=== PATIENT | female | born 1955 | race African-American/Black ===

== ENCOUNTER 2019-01-29 00:24 | Emergency (ER) | payer MEDICARE ==
[~2019-01-29] VITALS: Ht 154.9 cm; Wt 56.8 kg
[2019-01-29] MEDS ORDERED: METF10004 PO (00:49)
[2019-01-29] MEDS ORDERED: GLIP5TAB8 PO (00:49)
[2019-01-29] MEDS ORDERED: CLON0.2T PO (00:49)
[2019-01-29 00:58] LABS: BASO # 0.1 10^3/uL (0.0-0.2); BASO % 0.6 % (0.0-1.0); EOS # 0.3 10^3/uL (0.0-0.50); EOS % 3.1 % (0.0-3.0); HEMATOCRIT 32.5 % (36.0-47.0); HEMOGLOBIN 10.1 g/dl (12.0-15.5); LYMPH % 49.3 % (24.0-44.0); MEAN CORPUSCULAR HEMOGLOBIN 28.8 pg (27.0-33.0); MEAN CORPUSCULAR HGB CONC 31.1 g/dl (32.0-36.5); MEAN CORPUSCULAR VOLUME 92.6 fl (80.0-96.0); MONO # 0.6 10^3/uL (0.0-0.8); NEUTROPHILS # 3.1 10^3/uL (1.8-7.7); NEUTROPHILS % 38.8 % (36.0-66.0); PLATELET COUNT, AUTOMATED 318 10^3/uL (150-450); RED BLOOD COUNT 3.51 10^6/uL (4.00-5.40)
[2019-01-29] MEDS ORDERED: METOPROLOL 5 MG/5 ML VIAL IV STA (01:13)
[2019-01-29 01:35] LABS: BLOOD UREA NITROGEN 34 MG/DL (7-18); CALCIUM LEVEL 9.5 MG/DL (8.8-10.2); CARBON DIOXIDE LEVEL 31 MEQ/L (21-32); CHLORIDE LEVEL 99 MEQ/L (98-107); CPK CREATINE PHOSPHOKINASE 92 U/L (26-192); CREATININE FOR GFR 1.41 MG/DL (0.55-1.30); GLOMERULAR FILTRATION RATE 40.2 (>45); GLUCOSE, FASTING 142 MG/DL (70-100); MB/CK RELATIVE INDEX 2.17 (< OR =4); POTASSIUM SERUM 4.2 MEQ/L (3.5-5.1); SODIUM LEVEL 138 MEQ/L (136-145); TROPONIN I < 0.02 NG/ML (< 0.10)
[2019-01-29] MEDS ORDERED: cloNIDine 0.1 MG TAB PO ONE (01:45)
[2019-01-29 02:07] VITALS: BP 181/94
[2019-01-29] MEDS ORDERED: LOPR1TAB6 PO (03:21)
[2019-01-29 03:46] VITALS: BP 170/91
--- NOTE | 2019-01-29 08:57 | REP ---
Clinical: Acute chest pain . Comparison: None . Findings: The mediastinum and cardiac silhouette are stable and within normal limits for portable technique. The lung chester are clear without acute consolidation, effusion, or pneumothorax. Skeletal structures are intact. Impression: No acute cardiopulmonary process appreciated. Electronically Signed by Calvin Cueva MD 01/29/2019 08:49 A
--- NOTE | 2019-01-29 19:15 | ECGEPIP ---
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
== END 2019-01-29 03:47 | disposition home or self-care (01) ==
LOC: EDBD 00:24 → M ED 00:24
DX: I49.1 Atrial premature depolarization (principal); I10 Essential (primary) hypertension; E11.9 Type 2 diabetes mellitus without complications; Z79.899 Other long term (current) drug therapy; Z79.84 Long term (current) use of oral hypoglycemic drugs

== ENCOUNTER 2020-03-01 14:28 | Inpatient (IN) | payer MEDICARE, MEDICAID ==
[~2020-03-01] VITALS: Ht 154.9 cm; Wt 58.3 kg
[~2020-03-01 14:28] MED LIST: CLON0.2T PO; GLIP5TAB8 PO; LOPR1TAB6 PO; METF10004 PO
[2020-03-01] MEDS ORDERED: GLUCOSE 4GM CHEW TABLET PO PRN (15:30)
[2020-03-01] MEDS ORDERED: MAALOX 30 ML SUSP *UDC PO PRN (15:30)
[2020-03-01] MEDS ORDERED: MOM 30ML SUSPENSION UDC PO PRN (15:30)
[2020-03-01] MEDS ORDERED: DEXTROSE 50% 50 ML SYRINGE IV PRN (15:30)
[2020-03-01] MEDS ORDERED: VANCOMYCIN HCL 1,000 MG, VIAL MATE ADAPTER 1 EACH in D5W 250 ML IV SCH (15:30)
[2020-03-01] MEDS ORDERED: GLUCAGON INJ 1MG VIAL SC PRN (15:30)
--- NOTE | 2020-03-01 15:42 | HPEPDOC ---
General Date of Admission Mar 01, 2020 at 15:30 Date of Service: Mar 01, 2020 Chief Complaint The patient is a 64-year-old female admitted with a reason for visit of Hypertension. Source: Patient Exam Limitations: No limitations Timing/Duration: Other (not applicable) Severity: Other (not applicable) Associated Symptoms: Other (not applicable) History of Present Illness This is 64 years old female with past medical history of diabetes mellitus, hypertension, he was sent from wound care clinic by Dr. Rivera secondary to right foot infection which as per Dr. Lucero was positive for Staphylococcus aureus. Dr. Faith from podiatry was called and he also recommended patient to be transferred to the hospital for further management. As per patient, she had developed infection of the left second toe which had become swollen and tender. She was seen by a doctor at [facility] yesterday and he cleaned up the area, and today she was seen at wound care center with Dr. Stoddard decided to transfer her to hospital for further management and podiatry consult. Patient denies chest pain, shortness of breath, nausea, vomiting, abdominal pain, fever, etc. Home Medications Scheduled Amoxicillin/Potassium Clav (Amox-Clav 875-125 mg Tablet) 1 Each Tablet, 1 TAB PO BID, (Reported) Clonidine Hcl (Clonidine HCl) 0.1 Mg Tablet, 0.1 MG PO BID, (Reported) Glipizide (Glipizide) 5 Mg Tab, 5 MG PO DAILY, (Reported) Lisinopril (Lisinopril) 20 Mg Tablet, 20 MG PO DAILY, (Reported) Metformin HCl (Metformin HCl ER) 500 Mg Tab.er.24h, 1,000 MG PO BIDWM, (Reported) BREAKFAST AND DINNER Metoprolol Succinate (Metoprolol Succinate) 50 Mg Tab.er.24h, 50 MG PO DAILY, (Reported) Allergies Coded Allergies: No Known Allergies (Unverified , 01/29/19) Past Medical History Medical History Diabetes mellitus, hypertension, diabetic retinopathy Surgical History Right redness laser surgery Family History Significant Family History: No pertinent family hx Patient denies any other history except mother had diabetes Social History * Smoker: Denies Alcohol: Denies Drugs: denies A-FIB/CHADSVASC A-FIB History Current/History of A-Fib/PAF?: No Review of Systems Constitutional: Denies: Chills, Fever, Malaise, Night Sweats, Weakness, F atigue, Weight Loss, Lethargy, Other Eyes: Denies: Pain, Vision change, Conjunctivae inflammation, Eyelid inflammation, Redness, Other ENT: Denies: Head Aches, Ear Pain, Dysphagia, Sinus Congestion, Post Nasal Dr ip, Sore Throat, Epistaxis, Other Symptoms Skin: Denies: Rash, Lesions, Jaundice, Bruising, Itching, Dry, Breakdown, Nail Changes, Other Pulmonary: Denies: Dyspnea, Cough, Pleuritic Chest Pain, Other Symptoms Cardiovascular: Denies: Chest Pain, Palpitations, Orthopnea, Paroxysmal Noc. Dyspnea, Edema, Lt Headedness, Other Symptoms Gastrointestinal: Denies: Nausea, Vomiting, Abdominal Pain, Diarrhea, Constipation, Melena, Hematochezia, Other Symptoms Genitourinary: Denies: Dysuria, Frequency, Incontinence, Hematuria, Retention, Other Symptoms Hematologic: Denies: Bruising, Bleeding Excessively, Petecchia, Purpura, Enlarged Lymph Nodes, Other Hematologic Endocrine: Denies: Polydipsia, Polyphagia, Polyuria, Heat Intolerance, Cold Intolerance, Other Endocrine Sx Musculoskeletal: Reports: Other Symptoms (pain and swelling of the left second toe) Neurological: Denies: Weakness, Numbness, Incoordination, Change in speech, Confusion, Seizures, Other Symptoms Psych: Denies: Mood Normal, Anxiety, Depression, Memory Issues, Thoughts of Self Harm, Anger, Thoughts of Harming Other, Other Psych Physical Examination General Exam: Positive: Alert, Cooperative Eye Exam: Positive: PERRLA, Conjunctiva & lids normal ENT Exam: Positive: Atraumatic, Mucous membr. moist/pink Neck Exam: Positive: Supple Chest Exam: Positive: Clear to auscultation, Normal air movement Heart Exam: Positive: Rate Normal, Normal S1, Normal S2 Abdomen Exam: Positive: Normal bowel sounds, Soft Extremity Exam: Positive: Normal pulses, Other (positive swelling and open ulcer over the dorsum of left second toe) Skin Exam: Positive: Nl turgor and temperature Neuro Exam: Positive: Strength at 5/5 X4 ext, Sensation Intact, Cranial Nerves 3-12 NL Psych Exam: Positive: Mood NL, Oriented x 3 Vital Signs Please refer to nursing notes Problems (1) Cellulitis of toe of left foot Status: Acute Problem Text: Admit patient to MedSurg floor Cellulitis left second toe, rule out osteomyelitis, status post I&D by Dr. Cedric Pham at [facility] Patient's preliminary wound culture at [facility] which showed possible Staphylococcus infection, coagulase positive. Patient also had x-ray of left foot done which showed mild osteoarthritis, first metatarsal phalangeal joint hallux valgus soft tissue swelling medial to first metatarsal phalangeal joint. Patient's WBC was 14.2 with a hemoglobin on 9.4 and platelets of 419 Saline lock Start 300 Mg IV Every 12 Hours Repeat wound culture MRI of left foot to rule out osteomyelitis , Tylenol when necessary Podiatry consult with Dr. Alvarado has been called, other recommendations per podiatry Consistent carbohydrate diet Activity as tolerated DVT prophylaxis with heparin Continue home meds (2) Diabetes mellitus Status: Chronic Problem Text: Fingerstick blood sugar every before meals and at bedtime with coverage Continue home meds (3) Hypertension Status: Chronic Problem Text: Continue home meds Plan / VTE VTE Prophylaxis Ordered?: Yes MARIELENA REBOLLEDO MD Mar 01, 2020 15:42
[2020-03-01] MEDS ORDERED: CEFTAROLINE FOSAMIL 300 MG in D5W 50 ML IV SCH (15:45)
[2020-03-01 15:47] VITALS: BP 205/121
[2020-03-01 16:24] LABS: HEMATOCRIT 26.2 % (36.0-47.0); HEMOGLOBIN 8.5 g/dl (12.0-15.5); MEAN CORPUSCULAR HEMOGLOBIN 29.1 pg (27.0-33.0); MEAN CORPUSCULAR HGB CONC 32.4 g/dl (32.0-36.5); MEAN CORPUSCULAR VOLUME 89.7 fl (80.0-96.0); PLATELET COUNT, AUTOMATED 634 10^3/uL (150-450); RED BLOOD COUNT 2.92 10^6/uL (4.00-5.40); WHITE BLOOD COUNT 22.9 10^3/uL (4.0-10.0)
[2020-03-01] MEDS ORDERED: LISI-538 PO (16:33)
[2020-03-01] MEDS ORDERED: CLONI1TA PO (16:33)
[2020-03-01] MEDS ORDERED: METF-723 PO (16:33)
[2020-03-01] MEDS ORDERED: METO1TAB7 PO (16:33)
[2020-03-01 16:37] VITALS: BP 190/90
[2020-03-01] MEDS ORDERED: AMOX875T2 PO (16:45)
[2020-03-01 16:50] LABS: ALBUMIN 2.5 GM/DL (3.2-5.2); BILIRUBIN,TOTAL 0.3 MG/DL (0.2-1.0); CALCIUM LEVEL 9.1 MG/DL (8.8-10.2); CREATININE FOR GFR 1.44 MG/DL (0.55-1.30); GLOMERULAR FILTRATION RATE 39.1 (>45); POTASSIUM SERUM 4.8 MEQ/L (3.5-5.1)
--- NOTE | 2020-03-01 18:36 | REPVR ---
PROCEDURE INFORMATION: Exam: MR Left Lower Extremity Other Than Joint Without Contrast; Foot Exam date and time: 03/01/2020 4:21 PM Age: 64 years old Clinical indication: Cellulitis; Toes; Left; Patient HX: Infected 2nd toe; Additional info: R/O osteo TECHNIQUE: Imaging protocol: MR of the Left lower extremity without contrast. Exam focused on the foot. COMPARISON: No relevant prior studies available. FINDINGS: The examination is somewhat limited by motion degradation and the lack of intravenous contrast. There is severe, diffuse soft tissue swelling and subcutaneous edema with overlying skin thickening, compatible with cellulitis/myositis. There is loculated fluid along the dorsum of the 2nd metatarsal, measuring up to approximately 2.9 x 1.8 x 5.2 cm, tracking along the 2nd toe and extending into the 1st, 2nd and 3rd webspaces. There is no soft tissue mass. No acute tendon or ligament injury is identified. There is no MR evidence of acute fracture or dislocation. Alignment is anatomic. There is mild bone marrow edema in the base and shaft of the 2nd proximal phalanx and, to a lesser extent, the 2nd metatarsal head. This is predominantly evident on the fluid sensitive sequences, although there is questionable subtle associated T1 hypointensity in the base and shaft of the proximal phalanx. Mild degenerative changes are noted. There are no erosive or destructive changes. No lytic or blastic lesion is seen. There is a small amount of loculated fluid in the tibiotalar and posterior subtalar joints, as well as the 2nd metatarsophalangeal joint. IMPRESSION: 1. Limited noncontrast examination. 2. Cellulitis/myositis with probable abscess formation along the dorsum of the 2nd toe, as described above. 3. Query developing osteomyelitis of the 2nd proximal phalanx, as described above. 4. Additional findings, as above. Electronically signed by: Vadim No On 03/01/2020 18:36:12 PM
[2020-03-01] MEDS: glipiZIDE (GLUCOTROL) 5 MG TAB PO SCH (18:51)
[2020-03-01] MEDS: CEFTAROLINE FOSAMIL 400 MG in D5W MINI-BAG PLUS 50 ML IV SCH (18:51)
[2020-03-01] MEDS: HumaLOG INSULIN (NovoLOG) PER UNIT SC SCH ×2 (18:51→20:18)
[2020-03-01] MEDS: metFORMIN XR 500MG TAB *GLUCOPHAGE XR PO SCH (18:52)
[2020-03-01] MEDS ORDERED: cloNIDine 0.1 MG TAB PO ONE (19:00)
[2020-03-01] MEDS: ACETAMINOPHEN TAB 650MG DOSE (2X325MG) PO PRN (19:49)
[2020-03-01 19:56] VITALS: BP 142/70
[2020-03-01] MEDS: DOCUSATE SODIUM 100 MG CAP PO SCH (20:22)
[2020-03-01] MEDS: HEPARIN SOD (PORCINE) 5000UNITS/ML VIAL (J1644 PER 1000UNITS) SC SCH (20:23)
[2020-03-01] MEDS ORDERED: cloNIDine 0.2 MG TAB PO SCH (21:00)
[2020-03-01] MEDS ORDERED: cloNIDine 0.1 MG TAB PO SCH (21:00)
[2020-03-02] VITALS (8 sets, daily range): BP systolic 135–172; BP diastolic 80–97
[2020-03-02] MEDS: CEFTAROLINE FOSAMIL 400 MG in D5W MINI-BAG PLUS 50 ML IV SCH ×2 (06:16→18:11)
[2020-03-02] MEDS: ACETAMINOPHEN TAB 650MG DOSE (2X325MG) PO PRN ×2 (06:16→18:12)
[2020-03-02] MEDS: HumaLOG INSULIN (NovoLOG) PER UNIT SC SCH ×4 (07:30→20:19)
[2020-03-02] MEDS: METOPROLOL SUCC (TopROL XL) 50MG **XL** TAB PO SCH (08:43)
[2020-03-02] MEDS: cloNIDine 0.1 MG TAB PO SCH ×2 (08:44→20:19)
[2020-03-02] MEDS: metFORMIN XR 500MG TAB *GLUCOPHAGE XR PO SCH ×2 (08:44→18:11)
[2020-03-02] MEDS: DOCUSATE SODIUM 100 MG CAP PO SCH ×2 (08:45→20:20)
[2020-03-02] MEDS: glipiZIDE (GLUCOTROL) 5 MG TAB PO SCH ×2 (08:45→18:11)
--- NOTE | 2020-03-02 09:15 | IPNPDOC ---
Subjective Date Seen The patient was seen on 03/02/20. Subjective Chief Complaint/HPI Patient is comfortable offers no new complaints, awaiting podiatry consult General: Denies: ROS Unobtainable, Chills, Night Sweats, Fatigue, Malaise, Normal Appetite, Other Symptoms Constitutional: Denies: Chills, Fever, Malaise, Night Sweats, Weakness, Fatigue, Weight Loss, Lethargy, Other Pulmonary: Denies: Dyspnea, Cough, Pleuritic Chest Pain, Other Symptoms Cardiovascular: Denies: Chest Pain, Palpitations, Orthopnea, Paroxysmal Noc. Dyspnea, Edema, Lt Headedness, Other Symptoms Gastrointestinal: Denies: Nausea, Vomiting, Abdominal Pain, Diarrhea, Constipation, Melena, Hematochezia, Other Symptoms Musculoskeletal: Denies: Neck Pain, Back Pain, Shoulder Pain, Arm Pain, Hand Pain, Leg Pain, Foot Pain, Joint Pain, Muscle Pain, Spasms, Other Symptoms Neurological: Denies: Weakness, Numbness, Incoordination, Change in speech, Confusion, Seizures, Other Symptoms Objective Physical Examination ENT Exam: Positive: Atraumatic, Mucous membr. moist/pink Neck Exam: Positive: Supple Chest Exam: Positive: Clear to auscultation, Normal air movement Heart Exam: Positive: Rate Normal, Normal S1, Normal S2 Abdomen Exam: Positive: Normal bowel sounds, Soft Extremity Exam: Positive: Normal pulses, Other (positive swelling and open ul cer over the dorsum of left second toe) Skin Exam: Positive: Nl turgor and temperature Neuro Exam: Positive: Strength at 5/5 X4 ext, Sensation Intact, Cranial Nerves 3-12 NL Psych Exam: Positive: Mood NL, Oriented x 3 Assessment /Plan Problems (1) Cellulitis of toe of left foot Status: Acute Response to Treatment: Stable Problem Text: Continue to have lateral, as per orders CBC shows WBC count of 22.9 yesterday . We will repeat blood work in a.m. Patient is afebrile, stable at the present time Awaiting podiatry consultation MRI of foot pending (2) Hypertension Status: Chronic Problem Text: Continue present meds (3) Diabetes mellitus Status: Chronic Problem Text: Fingerstick blood sugar every before meals and at bedtime Continue home meds Home doses of meds adjusted according to patient's creatinine clearance Plan/VTE VTE Prophylaxis Ordered?: Yes VS, I&O, 24H, Fishbone Vital Signs/I&O Vital Signs Date Time Temp Pulse Resp B/P (MAP) Pulse Ox O2 Delivery O2 Flow Rate FiO2 03/02/20 08:43 98 138/82 03/02/20 06:31 98.5 20 100 Room Air I&O- Last 24 Hours up to 6 AM 03/02/20 06:00 Intake Total 220 ml Output Total 450 ml Balance -230 ml Laboratory Data 24H LABS Laboratory Tests 2 03/01/20 16:16: Nucleated Red Blood Cells % (auto) 0.0, Anion Gap 7L, Glomerular Filtration Rate 39.1L, Calcium Level 9.1, Total Bilirubin 0.3, Aspartate Amino Transf (AST/SGOT) 10, Alanine Aminotransferase (ALT/SGPT) 13, Alkaline Phosphatase 77, Total Protein 7.0, Albumin 2.5L, Albumin/Globulin Ratio 0.56L 03/01/20 18:13: Bedside Glucose (Misc Panel) 208H 03/01/20 18:30: Methicillin-Resist S.aureus DNA PCR NOT DETECTED 03/01/20 20:00: Bedside Glucose (Misc Panel) 189H 03/02/20 06:38: Bedside Glucose (Misc Panel) 164H 03/02/20 06:59: Urine Color STRAW, Urine Appearance CLEAR, Urine pH 5.0, Urine Specific [place] 1.005, Urine Protein NEGATIVE, Urine Glucose (UA) 1+H, Urine Ketones NEGATIVE, Urine Blood NEGATIVE, Urine Nitrite NEGATIVE, Urine Bilirubin NEGATIVE, Urine Urobilinogen 0.2, Urine Leukocyte Esterase NEGATIVE, Urine WBC (Auto) 3, Urine RBC (Auto) 5H, Urine Hyaline Casts (Auto) 0, Urine Bacteria (Auto) 1+H, Urine Squamous Epithelial Cells 0, Urine Sperm (Auto) CBC/BMP Laboratory Tests 03/01/20 16:16 Microbiology Microbiology 03/01/20 Gram Stain, Received Pending 03/01/20 Wound Culture, Received Pending MARIELENA REBOLLEDO MD Mar 02, 2020 09:15
[2020-03-02] MEDS ORDERED: LIDOCAINE 1% MDV 20ML VIAL As Ordered ONE (12:17)
[2020-03-02] MEDS ORDERED: BUPIVACAINE HCL 0.5% 10ML VIAL As Ordered ONE (12:17)
[2020-03-02] MEDS ORDERED: propofoL 200 MG/20 ML VIAL As Ordered ONE ×2 (12:36→13:23)
[2020-03-02] MEDS ORDERED: LIDOCAINE 2% 100MG/5ML SDV (FOR ANES.) As Ordered ONE (12:36)
[2020-03-02] MEDS ORDERED: fentaNYL 100 MCG/2 ML INJECTION (J3010) As Ordered ONE (12:36)
[2020-03-02] MEDS ORDERED: MIDAZOLAM INJ 2MG/2ML VIAL (J2250 PER 1MG) As Ordered ONE (12:36)
[2020-03-02] MEDS ORDERED: ONDANSETRON 4MG/2ML VIAL As Ordered ONE (12:37)
[2020-03-02] MEDS ORDERED: LR 1,000 ML IV SCH (14:00)
[2020-03-02] MEDS ORDERED: ONDANSETRON 4MG/2ML VIAL IV PRN (14:00)
[2020-03-02] MEDS ORDERED: PERCOCET 5MG/325MG TAB PO PRN (14:00)
--- NOTE | 2020-03-02 14:42 | CR ---
DATE OF CONSULTATION: 03/02/2020 REASON FOR CONSULTATION: Left 2nd toe infection. Ms. Hickman is a 64-year-old pleasant diabetic female who was admitted to the hospitalist for a left 2nd toe infection. She was seen at the wound care center and transferred due to extent of the infection. She believes the wound started from a callus on the top of her 2nd toe after she soaked it with hot water and Epsom salt. Past medical history is significant for diabetes, hypertension. ALLERGIES: NO KNOWN DRUG ALLERGIES. SOCIAL HISTORY: Denies smoking and alcohol use. REVIEW OF SYSTEMS: Negative for fever since admission. White blood cell count on admission was 22.9. Current culture results grew Staphylococcus aureus. MRI showed abscess formation over the left 2nd toe with some suggestions of osteomyelitis of the proximal phalanx head. LOWER EXTREMITY EXAMINATION: Foot is well perfused. There is gangrenous left 2nd toe with abscess and purulent drainage extending from the wound the left 2nd proximal interphalangeal joint. There is sluggish capillary refill to the distal toe. ASSESSMENT: 64-year-old diabetic female with abscess, gangrene left 2nd toe. PLAN: Left 2nd toe does not appear viable at this time. There is extensive soft tissue injury with essentially no chance of recovery as well as suggestion of osteomyelitis. The patient will be best served with left 2nd toe amputation and incision and drainage. We will plan this now, continue empiric antibiotics. Will take operative cultures as well.
--- NOTE | 2020-03-02 18:27 | RO ---
DATE OF PROCEDURE: 03/02/2020 PREPROCEDURE DIAGNOSIS: Left 2nd toe gangrene and abscess. POSTPROCEDURE DIAGNOSIS: Left 2nd toe gangrene and abscess. PROCEDURE: Left 2nd toe amputation and incision and drainage. SURGEON: Alexey Alvarado DPM CULTURAL CENTRE MANAGER: None. ANESTHESIA: Monitored anesthesia care, preop injection of 20 mL of a 1:1 mixture of 1% lidocaine plain and 0.50% Marcaine plain. ESTIMATED BLOOD LOSS: Minimal. SPECIMENS: Left 2nd toe. COMPLICATIONS: None. CONDITION: Stable. Kait Hickman is a 64-year-old diabetic female who was admitted to the hospital with left 2nd toe infection. She was evaluated and noted to have gangrene with significance purulence extending to the dorsal foot. Decision made to bring her to the operating room for left 2nd toe amputation and incision and drainage. Patient, site and side were identified and marked in preoperative holding area. Consent was reviewed and obtained. All risks, complications, and alternatives to the procedure were explained to the patient in detail and all questions were answered. DESCRIPTION OF PROCEDURE: The patient was brought to the operating room, placed on the operating room table in supine position, monitored anesthesia care was delivered by the anesthesia team. Preoperative injection of 20 mL of a 1:1 mixture of 1% lidocaine plain and 0.50% Marcaine plain were injected in the left foot. The left foot was prepped and draped in a normal sterile fashion. A tourniquet was applied to the left ankle and inflated at 250 mmHg. Toe was inspected. It was noted to be fully surrounded with purulent and necrotic tissue. There was no viability to this toe. There was no capillary refill of the distal toe. A Celsa was inserted through the dorsal wound of the 2nd toe and proximal tracking was noted going to approximately the midfoot. The toe was disarticulated using a #15 blade at the metatarsophalangeal joint. Significant purulence was expressed from the wound. Culture swabs were taken aerobic and anaerobic of this fluid. Culture was noted to be tracking along the dorsal extensor tendons. Incision was carried through dorsally to approximately the midfoot. Necrotic tissue was debrided using scissors and rongeur. Following this, 1500 mL of pulse lavage irrigation was sent through the wound. The wound was inspected. The metatarsal head was exposed, but appeared normal, in good condition and was firm. No further purulent or significant necrotic tissue was noted. An additional 1500 mL of pulse irrigation was rinsed through the wound, and the wound was then packed with saline gauze. The patient was brought to the postanesthesia care unit (PACU), vital signs stable, neurovascular status intact. She will be readmitted to the floor for continued antibiotics and dressing changes. She will likely require wound closure during this hospital admission once infection is well under control. Will follow.
[2020-03-02] MEDS: RAMELTEON 8 MG TAB (ROZEREM) PO PRN (22:41)
[2020-03-02] MEDS: PERCOCET 5MG/325MG TAB PO PRN (22:42)
[2020-03-03 00:56] VITALS: BP 162/86
[2020-03-03] MEDS: CEFTAROLINE FOSAMIL 400 MG in D5W MINI-BAG PLUS 50 ML IV SCH ×2 (05:53→17:38)
[2020-03-03] MEDS: ACETAMINOPHEN TAB 650MG DOSE (2X325MG) PO PRN ×2 (05:56→20:20)
[2020-03-03 06:00] VITALS: BP 162/78
[2020-03-03 06:35] LABS: BASO # 0.1 10^3/uL (0.0-0.2); BASO % 0.2 % (0.0-1.0); EOS # 0.1 10^3/uL (0.0-0.5); EOS % 0.6 % (0.0-3.0); HEMATOCRIT 23.5 % (36.0-47.0); HEMOGLOBIN 7.5 g/dl (12.0-15.5); LYMPH # 3.3 10^3/uL (1.5-5.0); MEAN CORPUSCULAR HEMOGLOBIN 28.8 pg (27.0-33.0); MEAN CORPUSCULAR HGB CONC 31.9 g/dl (32.0-36.5); MEAN CORPUSCULAR VOLUME 90.4 fl (80.0-96.0); MONO # 1.7 10^3/uL (0.0-0.8); MONO % 8.5 % (0.0-5.0); NEUTROPHILS # 15.1 10^3/uL (1.5-8.5); NEUTROPHILS % 73.8 % (36.0-66.0); PLATELET COUNT, AUTOMATED 603 10^3/uL (150-450); WHITE BLOOD COUNT 20.5 10^3/uL (4.0-10.0)
[2020-03-03 07:01] LABS: ALBUMIN 2.2 GM/DL (3.2-5.2); BILIRUBIN,TOTAL 0.3 MG/DL (0.2-1.0); CALCIUM LEVEL 8.4 MG/DL (8.8-10.2); CREATININE FOR GFR 1.23 MG/DL (0.55-1.30); GLOMERULAR FILTRATION RATE 46.9 (>45); TOTAL PROTEIN 5.9 GM/DL (6.4-8.2)
[2020-03-03] MEDS: HumaLOG INSULIN (NovoLOG) PER UNIT SC SCH ×4 (08:59→20:20)
[2020-03-03] MEDS: DOCUSATE SODIUM 100 MG CAP PO SCH ×2 (08:59→20:20)
[2020-03-03] MEDS: cloNIDine 0.1 MG TAB PO SCH ×2 (09:00→20:20)
[2020-03-03] MEDS: glipiZIDE (GLUCOTROL) 5 MG TAB PO SCH ×2 (09:00→17:38)
[2020-03-03] MEDS: METOPROLOL SUCC (TopROL XL) 50MG **XL** TAB PO SCH (09:00)
[2020-03-03] MEDS: metFORMIN XR 500MG TAB *GLUCOPHAGE XR PO SCH ×2 (09:01→17:38)
[2020-03-03] MEDS: HEPARIN SOD (PORCINE) 5000UNITS/ML VIAL (J1644 PER 1000UNITS) SC SCH ×2 (09:01→20:20)
--- NOTE | 2020-03-03 09:21 | IPNPDOC ---
Subjective Date Seen The patient was seen on 03/03/20. Subjective Chief Complaint/HPI Patient feels better status post amputation of second toe on the left side and I&D General: Denies: ROS Unobtainable, Chills, Night Sweats, Fatigue, Malaise, Normal Appetite, Other Symptoms Skin: Denies: Rash, Lesions, Jaundice, Bruising, Itching, Dry, Breakdown, Nail Changes, Other Pulmonary: Denies: Dyspnea, Cough, Pleuritic Chest Pain, Other Symptoms Cardiovascular: Denies: Chest Pain, Palpitations, Orthopnea, Paroxysmal Noc. Dyspnea, Edema, Lt Headedness, Other Symptoms Gastrointestinal: Denies: Nausea, Vomiting, Abdominal Pain, Diarrhea, Constipation, Melena, Hematochezia, Other Symptoms Endocrine: Denies: Polydipsia, Polyphagia, Polyuria, Heat Intolerance, Cold Intolerance, Other Endocrine Sx Musculoskeletal: Denies: Neck Pain, Back Pain, Shoulder Pain, Arm Pain, Hand Pain, Leg Pain, Foot Pain, Joint Pain, Muscle Pain, Spasms, Other Symptoms Neurological: Denies: Weakness, Numbness, Incoordination, Change in speech, Confusion, Seizures, Other Symptoms Objective Physical Examination ENT Exam: Positive: Atraumatic, Mucous membr. moist/pink Neck Exam: Positive: Supple Chest Exam: Positive: Clear to auscultation, Normal air movement Heart Exam: Positive: Rate Normal, Normal S1, Normal S2 Abdomen Exam: Positive: Normal bowel sounds, Soft Extremity Exam: Positive: Normal pulses, Other (positive swelling and open ulcer over the dorsum of left second toe) Skin Exam: Positive: Nl turgor and temperature Neuro Exam: Positive: Strength at 5/5 X4 ext, Sensation Intact, Cranial Nerves 3-12 NL Psych Exam: Positive: Mood NL, Oriented x 3 Assessment /Plan Problems (1) Cellulitis of toe of left foot Status: Acute Response to Treatment: Stable Problem Text: Status post amputation of left second toe and incision and dr cruz with drainage of pus MRI showed osteomyelitis of second toe on left side Continue cefatroline till sensitivities are back For wound culture shows Staphylococcus aureus WBC count is 20.5 today PTL well in progress Spoke with Dr. Alvarado, will possibly will need suturing in few days Continue present care and will monitor patient closely (2) Hypertension Status: Chronic Problem Text: Continue present meds (3) Diabetes mellitus Status: Chronic Problem Text: Fingerstick blood sugar every before meals and at bedtime Continue home meds Home doses of meds adjusted according to patient's creatinine clearance Plan/VTE VTE Prophylaxis Ordered?: Yes VS, I&O, 24H, Fishbone Vital Signs/I&O Vital Signs Date Time Temp Pulse Resp B/P (MAP) Pulse Ox O2 Delivery O2 Flow Rate FiO2 03/03/20 09:00 142/76 03/03/20 09:00 84 03/03/20 06:00 98.9 20 100 Room Air I&O- Last 24 Hours up to 6 AM 03/03/20 06:00 Intake Total 2030 ml Output Total 600 ml Balance 1430 ml Laboratory Data 24H LABS Laboratory Tests 2 03/02/20 11:39: Bedside Glucose (Misc Panel) 197H 03/02/20 13:43: Bedside Glucose (Misc Panel) 183H 03/02/20 17:48: Bedside Glucose (Misc Panel) 195H 03/02/20 20:10: Bedside Glucose (Misc Panel) 255H 03/03/20 06:17: Immature Granulocyte % (Auto) 0.9, Neutrophils (%) (Auto) 73.8H, Lymphocytes (%) (Auto) 16.0L, Monocytes (%) (Auto) 8.5H, Eosinophils (%) (Auto) 0.6, Basophils (%) (Auto) 0.2, Neutrophils # (Auto) 15.1H, Lymphocytes # (Auto) 3.3, Monocytes # (Auto) 1.7H, Eosinophils # (Auto) 0.1, Basophils # (Auto) 0.1, Nucleated Red Blood Cells % (auto) 0.0, Anion Gap 3L, Glomerular Filtration Rate 46.9, Calcium Level 8.4L, Total Bilirubin 0.3, Aspartate Amino Transf (AST/SGOT) 8, Alanine Aminotransferase (ALT/SGPT) 11L, Alkaline Phosphatase 67, Total Protein 5.9L, Albumin 2.2L, Albumin/Globulin Ratio 0.59L CBC/BMP Laboratory Tests 03/03/20 06:17 Microbiology Microbiology 03/02/20 Gram Stain - Final, Resulted 03/02/20 Wound Culture - Preliminary, Resulted Staphylococcus Aureus 03/02/20 Anaerobic Culture, Resulted Pending 03/01/20 Gram Stain - Final, Resulted 03/01/20 Wound Culture - Preliminary, Resulted Staphylococcus Aureus MARIELENA REBOLLEDO MD Mar 03, 2020 09:21
--- NOTE | 2020-03-03 09:21 | IPN ---
DATE: 03/03/2020 The patient seen and examined. States she had some pain overnight, but it was well controlled with the pain medication she was given. Vitals were reviewed. She has remained afebrile. Labs are reviewed. White blood cell count slightly improved at 20.5. Hemoglobin 7.5. Cultures are growing Staphylococcus aureus. Other aerobic cultures are pending. LOWER EXTREMITY EXAMINATION: Wound is inspected. There is no purulent drainage noted. No further necrotic tissue. There remains some erythema and edema surrounding the wound site. ASSESSMENT: 64-year-old diabetic female status post incision and drainage and amputation of left second toe. PLAN: Start Vashe dressing changes. Continue empiric antibiotics. Await culture results. Her hemoglobin if it dips, she may need a transfusion. Ultimate plan will be to perform wound closure while patient is in house. Will reevaluate Thursday. This potentially could be done at bedside if wound continues to improve. Will follow.
[2020-03-03 09:25] LABS: C REACTIVE PROTEIN QUANTITATIV 17.1 MG/DL (0.00-0.30)
[2020-03-03] MEDS: PERCOCET 5MG/325MG TAB PO PRN ×2 (12:31→18:38)
[2020-03-03 14:00] VITALS: BP 157/78
[2020-03-03 19:49] VITALS: BP 165/92
[2020-03-04] MEDS: CEFTAROLINE FOSAMIL 400 MG in D5W MINI-BAG PLUS 50 ML IV SCH (05:07)
[2020-03-04 05:17] VITALS: BP 160/88
[2020-03-04] MEDS ORDERED: VANCOMYCIN HCL 1,000 MG, VIAL MATE ADAPTER 1 EACH in D5W 250 ML IV SCH (07:30)
[2020-03-04] MEDS: METOPROLOL SUCC (TopROL XL) 50MG **XL** TAB PO SCH (08:36)
[2020-03-04] MEDS: DOCUSATE SODIUM 100 MG CAP PO SCH ×2 (08:36→21:00)
[2020-03-04] MEDS: glipiZIDE (GLUCOTROL) 5 MG TAB PO SCH ×2 (08:36→17:34)
[2020-03-04] MEDS: metFORMIN XR 500MG TAB *GLUCOPHAGE XR PO SCH ×2 (08:36→17:34)
[2020-03-04] MEDS: HumaLOG INSULIN (NovoLOG) PER UNIT SC SCH ×4 (08:36→21:00)
[2020-03-04] MEDS: cloNIDine 0.1 MG TAB PO SCH ×2 (08:37→21:00)
[2020-03-04] MEDS: HEPARIN SOD (PORCINE) 5000UNITS/ML VIAL (J1644 PER 1000UNITS) SC SCH ×2 (08:37→21:01)
[2020-03-04] MEDS: PERCOCET 5MG/325MG TAB PO PRN ×4 (08:38→21:00)
--- NOTE | 2020-03-04 09:35 | IPNPDOC ---
Subjective Date Seen The patient was seen on 03/04/20. Subjective Chief Complaint/HPI Patient is comfortable offers no new complaints General: Denies: ROS Unobtainable, Chills, Night Sweats, Fatigue, Malaise, Normal Appetite, Other Symptoms Constitutional: Denies: Chills, Fever, Malaise, Night Sweats, Weakness, Fatigue, Weight Loss, Lethargy, Other Pulmonary: Denies: Dyspnea, Cough, Pleuritic Chest Pain, Other Symptoms Cardiovascular: Denies: Chest Pain, Palpitations, Orthopnea, Paroxysmal Noc. Dyspnea, Edema, Lt Headedness, Other Symptoms Gastrointestinal: Denies: Nausea, Vomiting, Abdominal Pain, Diarrhea, Constipation, Melena, Hematochezia, Other Symptoms Musculoskeletal: Denies: Neck Pain, Back Pain, Shoulder Pain, Arm Pain, Hand Pain, Leg Pain, Foot Pain, Joint Pain, Muscle Pain, Spasms, Other Symptoms Neurological: Denies: Weakness, Numbness, Incoordination, Change in speech, Confusion, Seizures, Other Symptoms Objective Physical Examination ENT Exam: Positive: Atraumatic, Mucous membr. moist/pink Neck Exam: Positive: Supple Chest Exam: Positive: Clear to auscultation, Normal air movement Heart Exam: Positive: Rate Normal, Normal S1, Normal S2 Abdomen Exam: Positive: Normal bowel sounds, Soft Extremity Exam: Positive: Normal pulses, Other (positive swelling and open ulcer over the dorsum of left second toe) Skin Exam: Positive: Nl turgor and temperature Neuro Exam: Positive: Strength at 5/5 X4 ext, Sensation Intact, Cranial Nerves 3-12 NL Psych Exam: Positive: Mood NL, Oriented x 3 Assessment /Plan Problems (1) Cellulitis of toe of left foot Status: Acute Response to Treatment: Stable Problem Text: Status post amputation of left second toe and incision and drainage with drainage of pus MRI showed osteomyelitis of second toe on left side which was amputated Change cefatroline to Ancef 2 g IV every 8 hours for MSSA For wound culture shows Staphylococcus aureus MSSA Patient. WBC count was 20,000 yesterday. No blood work done today, but we will repeat tomorrow Physical therapy in progress Spoke with Dr. Alvarado, will possibly will need suturing in few days Continue present care and will monitor patient closely (2) Hypertension Status: Chronic Problem Text: Continue present meds (3) Diabetes mellitus Status: Chronic Problem Text: Fingerstick blood sugar every before meals and at bedtime Continue home meds Home doses of meds adjusted according to patient's creatinine clearance Plan/VTE VTE Prophylaxis Ordered?: Yes VS, I&O, 24H, Fishbone Vital Signs/I&O Vital Signs Date Time Temp Pulse Resp B/P (MAP) Pulse Ox O2 Delivery O2 Flow Rate FiO2 03/04/20 08:38 18 Room Air 03/04/20 05:17 98.1 86 160/88 (112) 98 I&O- Last 24 Hours up to 6 AM 03/04/20 06:00 Intake Total 1230 ml Output Total 200 ml Balance 1030 ml Laboratory Data 24H LABS Laboratory Tests 2 03/03/20 11:34: Bedside Glucose (Misc Panel) 107 03/03/20 16:25: Bedside Glucose (Misc Panel) 151H 03/03/20 19:51: Bedside Glucose (Misc Panel) 74L 03/04/20 06:17: Bedside Glucose (Misc Panel) 104 Microbiology Microbiology 03/02/20 Gram Stain - Final, Complete 03/02/20 Wound Culture - Final, Complete Staphylococcus Aureus 03/02/20 Anaerobic Culture - Final, Complete 03/01/20 Gram Stain - Final, Complete 03/01/20 Wound Culture - Final, Complete Staphylococcus Aureus MARIELENA REBOLLEDO MD Mar 04, 2020 09:35
[2020-03-04 14:00] VITALS: BP 163/87
[2020-03-04] MEDS: ceFAZolin SOD 2 GM in IV 1 EA IV SCH (17:34)
[2020-03-04] MEDS ORDERED: MORPHINE 2 MG/ML 1ML VIAL (J2270) IV ONE (18:00)
[2020-03-04] MEDS ORDERED: LIDOCAINE 1% MDV 20ML VIAL SC ONE (18:00)
[2020-03-04 20:08] VITALS: BP 164/90
[2020-03-05] MEDS: ceFAZolin SOD 2 GM in IV 1 EA IV SCH ×3 (00:22→17:25)
[2020-03-05 04:30] VITALS: BP 167/92
[2020-03-05] MEDS: PERCOCET 5MG/325MG TAB PO PRN ×5 (04:34→17:26)
[2020-03-05 06:16] LABS: BASO # 0.1 10^3/uL (0.0-0.2); BASO % 0.7 % (0.0-1.0); EOS # 0.3 10^3/uL (0.0-0.5); EOS % 2.5 % (0.0-3.0); HEMATOCRIT 23.5 % (36.0-47.0); HEMOGLOBIN 7.4 g/dl (12.0-15.5); LYMPH # 3.3 10^3/uL (1.5-5.0); LYMPH % 24.9 % (24.0-44.0); MEAN CORPUSCULAR HEMOGLOBIN 28.7 pg (27.0-33.0); MEAN CORPUSCULAR HGB CONC 31.5 g/dl (32.0-36.5); MEAN CORPUSCULAR VOLUME 91.1 fl (80.0-96.0); MONO # 1.1 10^3/uL (0.0-0.8); MONO % 8.7 % (0.0-5.0); NEUTROPHILS # 8.1 10^3/uL (1.5-8.5); NEUTROPHILS % 61.8 % (36.0-66.0); PLATELET COUNT, AUTOMATED 630 10^3/uL (150-450); RED BLOOD COUNT 2.58 10^6/uL (4.00-5.40); WHITE BLOOD COUNT 13.1 10^3/uL (4.0-10.0)
[2020-03-05] MEDS ORDERED: MORPHINE 2 MG/ML 1ML VIAL (J2270) IV ONE (07:00)
[2020-03-05] MEDS ORDERED: LIDOCAINE 1% MDV 20ML VIAL IM ONE (07:00)
[2020-03-05] MEDS: HumaLOG INSULIN (NovoLOG) PER UNIT SC SCH ×4 (07:30→19:52)
[2020-03-05 07:31] LABS: BILIRUBIN,TOTAL 0.2 MG/DL (0.2-1.0); C REACTIVE PROTEIN QUANTITATIV 11.4 MG/DL (0.00-0.30); CALCIUM LEVEL 8.5 MG/DL (8.8-10.2); CREATININE FOR GFR 1.28 MG/DL (0.55-1.30); GLOMERULAR FILTRATION RATE 44.8 (>45); POTASSIUM SERUM 5.3 MEQ/L (3.5-5.1)
[2020-03-05] MEDS: HEPARIN SOD (PORCINE) 5000UNITS/ML VIAL (J1644 PER 1000UNITS) SC SCH ×2 (08:39→20:33)
[2020-03-05] MEDS: metFORMIN XR 500MG TAB *GLUCOPHAGE XR PO SCH ×2 (08:40→17:25)
[2020-03-05] MEDS: glipiZIDE (GLUCOTROL) 5 MG TAB PO SCH ×2 (08:40→17:25)
[2020-03-05] MEDS: cloNIDine 0.1 MG TAB PO SCH ×2 (08:41→20:33)
[2020-03-05] MEDS: METOPROLOL SUCC (TopROL XL) 50MG **XL** TAB PO SCH (08:41)
[2020-03-05] MEDS: DOCUSATE SODIUM 100 MG CAP PO SCH ×2 (08:41→20:33)
--- NOTE | 2020-03-05 10:07 | IPNPDOC ---
Subjective Date Seen The patient was seen on 03/05/20. Subjective Chief Complaint/HPI Patient comfortable offers no new complaints General: Denies: ROS Unobtainable, Chills, Night Sweats, Fatigue, Malaise, Norm al Appetite, Other Symptoms Constitutional: Denies: Chills, Fever, Malaise, Night Sweats, Weakness, Fatigue, Weight Loss, Lethargy, Other Pulmonary: Denies: Dyspnea, Cough, Pleuritic Chest Pain, Other Symptoms Cardiovascular: Denies: Chest Pain, Palpitations, Orthopnea, Paroxysmal Noc. Dyspnea, Edema, Lt Headedness, Other Symptoms Gastrointestinal: Denies: Nausea, Vomiting, Abdominal Pain, Diarrhea, Constipat ion, Melena, Hematochezia, Other Symptoms Endocrine: Denies: Polydipsia, Polyphagia, Polyuria, Heat Intolerance, Cold Intolerance, Other Endocrine Sx Musculoskeletal: Denies: Neck Pain, Back Pain, Shoulder Pain, Arm Pain, Hand Pain, Leg Pain, Foot Pain, Joint Pain, Muscle Pain, Spasms, Other Symptoms Neurological: Denies: Weakness, Numbness, Incoordination, Change in speech, Confusion, Seizures, Other Symptoms Objective Physical Examination ENT Exam: Positive: Atraumatic, Mucous membr. moist/pink Neck Exam: Positive: Supple Chest Exam: Positive: Clear to auscultation, Normal air movement Heart Exam: Positive: Rate Normal, Normal S1, Normal S2 Abdomen Exam: Positive: Normal bowel sounds, Soft Extremity Exam: Positive: Normal pulses, Other (positive swelling and open ul cer over the dorsum of left second toe) Skin Exam: Positive: Nl turgor and temperature Neuro Exam: Positive: Strength at 5/5 X4 ext, Sensation Intact, Cranial Nerves 3-12 NL Psych Exam: Positive: Mood NL, Oriented x 3 Assessment /Plan Problems (1) Cellulitis of toe of left foot Status: Acute Response to Treatment: Stable Problem Text: Status post amputation of left second toe and incision and drainage with drainage of pus MRI showed osteomyelitis of second toe on left side which was amputated Change cefatroline to Ancef 2 g IV every 8 hours for MSSA For wound culture shows Staphylococcus aureus MSSA Patient. WBC count is 13.1 today Physical therapy in progress Patient will probably have a repeat debridement done today at bedside by Dr. Calles Will discharge patient on oral antibiotics once cleared by podiatry and physical therapy (2) Hypertension Status: Chronic Problem Text: Blood pressure is still slightly high, systolic more than 160-170 Will increase metoprolol XL 200 mg by mouth daily from tomorrow morning Monitor blood pressure and heart rate and adjust dose accordingly (3) Diabetes mellitus Status: Chronic Problem Text: Fingerstick blood sugar every before meals and at bedtime Continue home meds Home doses of meds adjusted according to patient's creatinine clearance Plan/VTE VTE Prophylaxis Ordered?: Yes VS, I&O, 24H, Fishbone Vital Signs/I&O Vital Signs Date Time Temp Pulse Resp B/P (MAP) Pulse Ox O2 Delivery O2 Flow Rate FiO2 03/05/20 09:52 18 03/05/20 08:41 132/80 03/05/20 08:41 86 03/05/20 04:30 98.6 03/05/20 04:30 99 Room Air I&O- Last 24 Hours up to 6 AM 03/05/20 06:00 Intake Total 1740 ml Output Total 1000 ml Balance 740 ml Laboratory Data 24H LABS Laboratory Tests 2 03/04/20 11:34: Bedside Glucose (Misc Panel) 125H 03/04/20 16:32: Bedside Glucose (Misc Panel) 158H 03/04/20 20:19: Bedside Glucose (Misc Panel) 98 03/05/20 06:02: Anion Gap 2L, Glomerular Filtration Rate 44.8L, Calcium Level 8.5L, Total Bilirubin 0.2, Aspartate Amino Transf (AST/SGOT) 13, Alanine Aminotransferase (ALT/SGPT) 10L, Alkaline Phosphatase 61, C-Reactive Protein, Quantitative 11.40H, Total Protein 6.0L, Albumin 2.0L, Albumin/Globulin Ratio 0.50L 03/05/20 06:03: Immature Granulocyte % (Auto) 1.4, Neutrophils (%) (Auto) 61.8, Lymphocytes (%) (Auto) 24.9, Monocytes (%) (Auto) 8.7H, Eosinophils (%) (Auto) 2.5, Basophils (%) (Auto) 0.7, Neutrophils # (Auto) 8.1, Lymphocytes # (Auto) 3.3, Monocytes # (Auto) 1.1H, Eosinophils # (Auto) 0.3, Basophils # (Auto) 0.1, Nucleated Red Blood Cells % (auto) 0.0 CBC/BMP Laboratory Tests 4/6/20 06:02 03/05/20 06:03 Microbiology Microbiology 03/02/20 Gram Stain - Final, Complete 03/02/20 Wound Culture - Final, Complete Staphylococcus Aureus 03/02/20 Anaerobic Culture - Final, Complete 03/01/20 Gram Stain - Final, Complete 03/01/20 Wound Culture - Final, Complete Staphylococcus Aureus MARIELENA REBOLLEDO MD Mar 05, 2020 10:07
--- NOTE | 2020-03-05 10:23 | IPN ---
DATE OF SERVICE: 03/05/2020 The patient seen and examined. States pain is controlled with the current pain medications. Vitals are reviewed. She has been afebrile. She denies any nausea, vomiting, fever or chills. Labs are reviewed. White blood cell count is improved to 13.1, down from 20.5. CRP is 11.4, improved from 17.1. Lower Extremity Examination: Erythema and edema are improved. There is no further purulence. There is minimal necrotic tissue in the wound. There is some excoriated skin on the wound margins. ASSESSMENT: Diabetic female with cellulitis and abscess status post second toe amputation incision and drainage. PLAN: Partial wound closure performed. Patient was premedicated. 2 mg morphine, 6 mL 1% lidocaine plain were injected to the left foot. The site was prepped with Betadine solution. Using #3-0 nylon, partial wound closure was performed, predominantly to prevent further skin retraction. Full wound closure was not able to be performed at this time due to excoriated skin. She is currently on cefazolin. Would continue this until her labs are fully normal and the erythema and edema is fully resolved. Suspect she will be able to be discharged within the next few days on oral antibiotics, mostly likely cephalexin. Will follow.
[2020-03-05 14:00] VITALS: BP 153/88
[2020-03-05] MEDS: RAMELTEON 8 MG TAB (ROZEREM) PO PRN (20:33)
[2020-03-05] MEDS: ACETAMINOPHEN TAB 650MG DOSE (2X325MG) PO PRN (20:34)
[2020-03-05 20:40] VITALS: BP 168/90
[2020-03-06] MEDS: ceFAZolin SOD 2 GM in IV 1 EA IV SCH ×3 (00:03→17:41)
[2020-03-06 04:55] VITALS: BP 170/81
[2020-03-06] MEDS: PERCOCET 5MG/325MG TAB PO PRN ×4 (04:55→21:34)
[2020-03-06 06:06] LABS: BASO # 0.1 10^3/uL (0.0-0.2); BASO % 0.5 % (0.0-1.0); EOS # 0.4 10^3/uL (0.0-0.5); HEMATOCRIT 24.1 % (36.0-47.0); HEMOGLOBIN 7.5 g/dl (12.0-15.5); LYMPH # 3.4 10^3/uL (1.5-5.0); LYMPH % 26.8 % (24.0-44.0); MEAN CORPUSCULAR HEMOGLOBIN 28.4 pg (27.0-33.0); MEAN CORPUSCULAR HGB CONC 31.1 g/dl (32.0-36.5); MEAN CORPUSCULAR VOLUME 91.3 fl (80.0-96.0); MONO # 0.9 10^3/uL (0.0-0.8); MONO % 7.3 % (0.0-5.0); NEUTROPHILS # 7.7 10^3/uL (1.5-8.5); NEUTROPHILS % 61.3 % (36.0-66.0); PLATELET COUNT, AUTOMATED 657 10^3/uL (150-450); RED BLOOD COUNT 2.64 10^6/uL (4.00-5.40); WHITE BLOOD COUNT 12.5 10^3/uL (4.0-10.0)
[2020-03-06 06:30] LABS: ALT/SGPT 8 U/L (12-78); BILIRUBIN,TOTAL 0.1 MG/DL (0.2-1.0); BLOOD UREA NITROGEN 16 MG/DL (7-18); CALCIUM LEVEL 8.6 MG/DL (8.8-10.2); CARBON DIOXIDE LEVEL 30 MEQ/L (21-32); CHLORIDE LEVEL 108 MEQ/L (98-107); CREATININE FOR GFR 1.18 MG/DL (0.55-1.30); GLOMERULAR FILTRATION RATE 49.2 (>45); GLUCOSE, FASTING 94 MG/DL (70-100); POTASSIUM SERUM 4.6 MEQ/L (3.5-5.1); SODIUM LEVEL 136 MEQ/L (136-145); TOTAL PROTEIN 6.9 GM/DL (6.4-8.2)
[2020-03-06] MEDS: HumaLOG INSULIN (NovoLOG) PER UNIT SC SCH ×4 (07:30→21:00)
[2020-03-06] MEDS: HEPARIN SOD (PORCINE) 5000UNITS/ML VIAL (J1644 PER 1000UNITS) SC SCH ×2 (07:42→21:35)
[2020-03-06] MEDS: DOCUSATE SODIUM 100 MG CAP PO SCH ×2 (07:43→21:34)
[2020-03-06] MEDS: metFORMIN XR 500MG TAB *GLUCOPHAGE XR PO SCH ×2 (07:43→17:40)
[2020-03-06] MEDS: cloNIDine 0.1 MG TAB PO SCH ×2 (07:44→21:35)
[2020-03-06] MEDS: METOPROLOL SUCC (TopROL XL) 50MG **XL** TAB PO SCH (07:44)
[2020-03-06] MEDS: glipiZIDE (GLUCOTROL) 5 MG TAB PO SCH ×2 (07:45→17:40)
[2020-03-06] MEDS: lisinopriL 20 MG TAB PO SCH (09:00)
[2020-03-06 14:23] VITALS: BP 166/82
--- NOTE | 2020-03-06 18:43 | IPNPDOC ---
Date Seen The patient was seen on 03/06/20. Progress Note SUBJECTIVE: Pain controlled s/p debridement on 03/05/20. BP not well controlled still at 170/87. Waiting clearance by PT/OT then can discharge home. Denies chest pain, n/v/d, shortness of breath. OBJECTIVE: VITAL SIGNS: Please see below PHYSICAL EXAMINATION: CONSTITUTIONAL: No acute distress, resting comfortably, AAO x 3 EYES: PERRLA, EOM intact HENT, MOUTH: Normocephalic, atraumatic, moist mucous membranes NECK: SUPPLE, no JVD, no lymphadenopathy, no carotid bruit CV: Regular rate and rhythm, S1S2 normal, no murmurs/rubs/gallops RESPIRATORY: Clear to auscultation bilaterally, no rales/rhonchi/wheezes GI: BS positive in 4 quadrants, soft, nontender, nondistended, no rebound or guarding, no organomegaly : Deferred MUSCULOSKELETAL: Normal ROM. No cyanosis, clubbing, swelling, joint deformity, extremity edema INTEGUMENTARY: Intact, no rashes, no lesions, no erythema NEUROLOGIC: Cranial Nerves II-XII are intact, no focal deficits PSYCHIATRIC: Mood and affect are normal CURRENT MEDICATIONS: Please see below LABORATORY DATA: Please see below IMAGING: ASSESSMENT: PLAN: 1.Osteomyelitis and cellulitis of toe of left foot, s/p debridement 03/06/20. + MSSA on wound cx. Afebrile, WBC 12.5, improved. C/w Ancef IV Q8 hrs, PT/OT. D/c on oral abx when cleared by podiatry and PT/OT. 2. Hypertension. Restart home ACEi along with BB, clonidine. Monitor blood pressure and heart rate and adjust dose accordingly. 3. Diabetes mellitus II. C/w current regimen, AC/HS blood sugar checks, ISS. DISPOSITION: Plan is discharge home when medically improved. F/u with PCP and podiatry after discharge. VS, I&O, 24H, [facility] Vital Signs/I&O Vital Signs Date Time Temp Pulse Resp B/P (MAP) Pulse Ox O2 Delivery O2 Flow Rate FiO2 03/06/20 18:11 18 Room Air 03/06/20 14:23 98.3 80 166/82 (110) 99 I&O- Last 24 Hours up to 6 AM 03/06/20 06:00 Intake Total 2190 ml Output Total 650 ml Balance 1540 ml Laboratory Data 24H LABS Laboratory Tests 2 03/05/20 19:50: Bedside Glucose (Misc Panel) 132H 03/06/20 05:49: Immature Granulocyte % (Auto) 1.1, Neutrophils (%) (Auto) 61.3, Lymphocytes (%) (Auto) 26.8, Monocytes (%) (Auto) 7.3H, Eosinophils (%) (Auto) 3.0, Basophils (%) (Auto) 0.5, Neutrophils # (Auto) 7.7, Lymphocytes # (Auto) 3.4, Monocytes # (Auto) 0.9H, Eosinophils # (Auto) 0.4, Basophils # (Auto) 0.1, Nucleated Red Blood Cells % (auto) 0.0, Anion Gap , Glomerular Filtration Rate 49.2, Calcium Level 8.6L, Total Bilirubin 0.1L, Aspartate Amino Transf (AST/SGOT) 13, Alanine Aminotransferase (ALT/SGPT) 8L, Alkaline Phosphatase 63, C-Reactive Protein, Quantitative 8.40H, Total Protein 6.9, Albumin 2.0L, Albumin/Globulin Ratio 0.41L 03/06/20 11:24: Bedside Glucose (Misc Panel) 266H 03/06/20 16:48: Bedside Glucose (Misc Panel) 73L CBC/BMP Laboratory Tests 03/06/20 05:49 Microbiology Microbiology 03/02/20 Gram Stain - Final, Complete 03/02/20 Wound Culture - Final, Complete Staphylococcus Aureus 03/02/20 Anaerobic Culture - Final, Complete 03/01/20 Gram Stain - Final, Complete 03/01/20 Wound Culture - Final, Complete Staphylococcus Aureus Current Medications Current Medications Medications (Trade) Dose Ordered Sig/Anali Route PRN Reason Start Time Stop Time Status Last Admin Dose Admin Acetaminophen (Tylenol Tab) 650 mg Q4H PRN PO PAIN OR FEVER 03/01/20 15:30 03/05/20 20:34 Al Hydrox/Mg Hydrox/Simethicone (Mylanta) 30 ml DAILY PRN PO DYSPEPSIA 03/01/20 15:30 Cefazolin Sodium/ Dextrose 2 gm/IV Miscellaneous Supplies 50 ml @ 75 mls/hr Q8H IV 03/04/20 17:00 03/06/20 17:41 Ceftaroline Fosamil 300 mg/ Dextrose 50 ml @ 50 mls/hr Q12H IV 03/01/20 15:45 03/01/20 17:11 DC Ceftaroline Fosamil 400 mg/ Dextrose 50 ml @ 50 mls/hr Q12H IV 03/01/20 18:00 03/04/20 07:26 DC 03/04/20 05:07 Clonidine HCl (Catapres) 0.1 mg Q12H PO 03/01/20 21:00 03/01/20 18:47 DC Clonidine HCl (Catapres) 0.1 mg Q12H PO 03/02/20 09:00 03/06/20 07:44 Clonidine HCl (Catapres) 0.2 mg QHS PO 03/01/20 21:00 03/01/20 16:22 DC Dextrose (Dextrose 50%) 25 ml ASDIRECTED PRN IV SEE LABEL COMMENTS 03/01/20 15:30 Docusate Sodium (Colace) 100 mg BID PO 03/01/20 21:00 03/06/20 07:43 Glipizide (Glucotrol) 5 mg BID@0730,1730 PO 03/01/20 17:30 03/06/20 17:40 Glucagon (Glucagon) 1 mg ASDIRECTED PRN SC SEE LABEL COMMENTS 03/01/20 15:30 Glucose (Glucose) 16 GM ASDIRECTED PRN PO SEE LABEL COMMENTS 03/01/20 15:30 Heparin Sodium (Porcine) (Heparin) 5,000 units Q12H SC 03/01/20 21:00 03/06/20 07:42 Home Med (Med Rec Complete!) ASDIRECTED XX 03/01/20 17:00 03/01/20 16:48 DC Insulin Human Lispro (HumaLOG INSULIN) SEE PROTOCOL TABLE AC SC 03/01/20 17:30 03/06/20 12:53 Insulin Human Lispro (HumaLOG INSULIN) SEE PROTOCOL TABLE QHS SC 03/01/20 21:00 03/02/20 20:19 Lactated Ringer's 1,000 ml @ 100 mls/hr Q10H IV 03/02/20 14:00 03/02/20 15:00 DC Magnesium Hydroxide (Milk Of Magnesia) 30 ml DAILY PRN PO CONSTIPATION 03/01/20 15:30 Metformin HCl (Glucophage Xr) 500 mg BID@08,18 PO 03/01/20 18:00 03/06/20 17:40 Metoprolol Succinate (TopROL XL) 50 mg QAM PO 03/02/20 09:00 03/05/20 10:07 DC 03/05/20 08:41 Metoprolol Succinate (TopROL XL) 100 mg QAM PO 03/06/20 09:00 03/06/20 07:44 Ondansetron HCl (ZOFRAN INJection) 4 mg Q4HP PRN IV NAUSEA OR VOMITING 03/02/20 14:00 03/02/20 15:00 DC Oxycodone/ Acetaminophen (Percocet 5mg/ 325mg Tablet) 1 tab ASDIRECTED PRN PO PAIN LEVEL 1-4 03/02/20 14:00 03/02/20 15:00 DC Oxycodone/ Acetaminophen (Percocet 5mg/ 325mg Tablet) 1 tab Q4HP PRN PO PAIN 03/02/20 15:00 03/06/20 17:41 Ramelteon (Rozerem) 8 mg QHSP PRN PO INSOMNIA 03/02/20 20:00 03/05/20 20:33 Vancomycin HCl 1000 mg/IV Miscellaneous Supplies 1 each/ Dextrose 270 ml @ 270 mls/hr Q12H IV 03/01/20 15:30 03/01/20 15:37 DC Vancomycin HCl 1000 mg/IV Miscellaneous Supplies 1 each/ Dextrose 270 ml @ 270 mls/hr Q12H IV 03/04/20 07:30 03/04/20 08:07 DC Allergies Coded Allergies: No Known Allergies (Unverified , 01/29/19) Yajaira Goyal MD Mar 06, 2020 18:43
[2020-03-06] MEDS: RAMELTEON 8 MG TAB (ROZEREM) PO PRN (21:34)
[2020-03-06 22:00] VITALS: BP 170/82
[2020-03-07] MEDS: ceFAZolin SOD 2 GM in IV 1 EA IV SCH ×3 (00:13→17:27)
[2020-03-07 05:44] LABS: BASO # 0.1 10^3/uL (0.0-0.2); BASO % 0.7 % (0.0-1.0); EOS # 0.4 10^3/uL (0.0-0.5); EOS % 3.4 % (0.0-3.0); HEMATOCRIT 23.7 % (36.0-47.0); HEMOGLOBIN 7.5 g/dl (12.0-15.5); LYMPH # 3.5 10^3/uL (1.5-5.0); LYMPH % 27.4 % (24.0-44.0); MEAN CORPUSCULAR HEMOGLOBIN 28.8 pg (27.0-33.0); MEAN CORPUSCULAR HGB CONC 31.6 g/dl (32.0-36.5); MEAN CORPUSCULAR VOLUME 91.2 fl (80.0-96.0); MONO # 1.1 10^3/uL (0.0-0.8); MONO % 8.4 % (0.0-5.0); NEUTROPHILS # 7.4 10^3/uL (1.5-8.5); PLATELET COUNT, AUTOMATED 648 10^3/uL (150-450); WHITE BLOOD COUNT 12.6 10^3/uL (4.0-10.0)
[2020-03-07 06:00] VITALS: BP 166/87
[2020-03-07 06:08] LABS: ALT/SGPT < 6 U/L (12-78); BILIRUBIN,TOTAL 0.1 MG/DL (0.2-1.0); BLOOD UREA NITROGEN 16 MG/DL (7-18); CALCIUM LEVEL 8.8 MG/DL (8.8-10.2); CARBON DIOXIDE LEVEL 30 MEQ/L (21-32); CHLORIDE LEVEL 110 MEQ/L (98-107); CREATININE FOR GFR 1.15 MG/DL (0.55-1.30); GLOMERULAR FILTRATION RATE 50.7 (>45); GLUCOSE, FASTING 74 MG/DL (70-100); POTASSIUM SERUM 4.7 MEQ/L (3.5-5.1); SODIUM LEVEL 140 MEQ/L (136-145); TOTAL PROTEIN 6.6 GM/DL (6.4-8.2)
[2020-03-07] MEDS: HumaLOG INSULIN (NovoLOG) PER UNIT SC SCH ×4 (07:30→20:26)
[2020-03-07] MEDS: metFORMIN XR 500MG TAB *GLUCOPHAGE XR PO SCH ×2 (08:40→17:27)
[2020-03-07] MEDS: PERCOCET 5MG/325MG TAB PO PRN ×3 (08:42→21:36)
[2020-03-07] MEDS: cloNIDine 0.1 MG TAB PO SCH ×2 (08:43→20:25)
[2020-03-07] MEDS: lisinopriL 20 MG TAB PO SCH (08:44)
[2020-03-07] MEDS: glipiZIDE (GLUCOTROL) 5 MG TAB PO SCH (08:44)
[2020-03-07] MEDS: METOPROLOL SUCC (TopROL XL) 50MG **XL** TAB PO SCH (08:51)
[2020-03-07] MEDS: HEPARIN SOD (PORCINE) 5000UNITS/ML VIAL (J1644 PER 1000UNITS) SC SCH ×2 (08:52→20:25)
[2020-03-07] MEDS: DOCUSATE SODIUM 100 MG CAP PO SCH ×2 (08:53→20:25)
--- NOTE | 2020-03-07 10:29 | IPN ---
DATE OF SERVICE: 03/07/2020 The patient seen and examined. Denies overnight complaints. States pain in foot seems to be easing up. It is helped by the pain medication. Vitals are reviewed. She has been afebrile. Laboratories are reviewed. White cell count remains elevated at 12.6. CRP is improved to 6.2. Lower extremity examination: Wound suture margins are coapted. There are a few small open areas at the distal and central wound. There is no purulent drainage. No extending erythema. Some excoriation around the incision margins. ASSESSMENT: A 64-year-old diabetic female, status post left 2nd toe amputation, incision and drainage. PLAN: The patient will be able to be discharged once she is cleared by physical therapy. She is to have 2 weeks of cephalexin. Ideally, she will be sent home with home nursing care to assist with wound care, and she should followup with me next week.
--- NOTE | 2020-03-07 13:10 | IPNPDOC ---
Date Seen The patient was seen on 03/07/20. Progress Note SUBJECTIVE: Wound appears well healing. PT states currently is not safe to return home and may require 1-2 more sessions, working with stairs before discharge. Patient has no new complaints. Denies chest pain, n/v/d, shortness of breath. OBJECTIVE: VITAL SIGNS: Please see below PHYSICAL EXAMINATION: CONSTITUTIONAL: No acute distress, resting comfortably, AAO x 3 EYES: PERRLA, EOM intact HENT, MOUTH: Normocephalic, atraumatic, moist mucous membranes NECK: SUPPLE, no JVD, no lymphadenopathy, no carotid bruit CV: Regular rate and rhythm, S1S2 normal, no murmurs/rubs/gallops RESPIRATORY: Clear to auscultation bilaterally, no rales/rhonchi/wheezes GI: BS positive in 4 quadrants, soft, nontender, nondistended, no rebound or guarding, no organomegaly : Deferred MUSCULOSKELETAL: Well healing wound on the dorsal aspect of left foot, multiple stitches, nonsuppurative, no foul smell. Decreased ROM left ankle. No cyanosis, clubbing. +1 pitting edema in the LLE INTEGUMENTARY: See wound abovbe, otherwise skin is intact, no rashes, no lesions, no erythema NEUROLOGIC: Cranial Nerves II-XII are intact, no focal deficits PSYCHIATRIC: Mood and affect are normal CURRENT MEDICATIONS: Please see below LABORATORY DATA: Please see below IMAGING: No new imaging. ASSESSMENT: 64 y/o F treated for Osteomyelitis and cellulitis of toe of left foot, s/p debridement healing well. PLAN: 1.Osteomyelitis and cellulitis of toe of left foot, s/p debridement 03/06/20. Improving slowly, no increased signs of infection. C/w Ancef IV Q8 hrs, PT/OT. D/c on oral abx when cleared by podiatry and PT/OT. 2. Hypertension. BP 166/70 despite restarting home ACEi along with BB, clonidine- resistant HTN. Monitor blood pressure and heart rate and adjust dose accordingly. Consider increasing home meds further. 3. Diabetes mellitus II. BS controlled. C/w current regimen, AC/HS blood sugar checks, ISS. DISPOSITION: Plan is discharge home when medically improved. F/u with PCP and podiatry after discharge. VS, I&O, 24H, [facility] Vital Signs/I&O Vital Signs Date Time Temp Pulse Resp B/P (MAP) Pulse Ox O2 Delivery O2 Flow Rate FiO2 03/07/20 09:12 16 03/07/20 08:43 166/87 03/07/20 06:00 98.7 91 99 Room Air I&O- Last 24 Hours up to 6 AM 03/07/20 06:00 Intake Total 2310 ml Output Total 1700 ml Balance 610 ml Laboratory Data 24H LABS Laboratory Tests 2 03/06/20 16:48: Bedside Glucose (Misc Panel) 73L 03/06/20 20:21: Bedside Glucose (Misc Panel) 208H 03/07/20 05:17: Immature Granulocyte % (Auto) 1.1, Neutrophils (%) (Auto) 59.0, Lymphocytes (%) (Auto) 27.4, Monocytes (%) (Auto) 8.4H, Eosinophils (%) (Auto) 3.4H, Basophils (%) (Auto) 0.7, Neutrophils # (Auto) 7.4, Lymphocytes # (Auto) 3.5, Monocytes # (Auto) 1.1H, Eosinophils # (Auto) 0.4, Basophils # (Auto) 0.1, Nucleated Red Blood Cells % (auto) 0.0, Anion Gap 0L, Glomerular Filtration Rate 50.7, Calcium Level 8.8, Total Bilirubin 0.1L, Aspartate Amino Transf (AST/SGOT) 16, Alanine Aminotransferase (ALT/SGPT) < 6L, Alkaline Phosphatase 60, C-Reactive Protein, Quantitative 6.20H, Total Protein 6.6, Albumin 2.0L, Albumin/Globulin Ratio 0.43L 03/07/20 11:21: Bedside Glucose (Misc Panel) 218H CBC/BMP Laboratory Tests 03/07/20 05:17 Microbiology Microbiology 03/02/20 Gram Stain - Final, Complete 03/02/20 Wound Culture - Final, Complete Staphylococcus Aureus 03/02/20 Anaerobic Culture - Final, Complete 03/01/20 Gram Stain - Final, Complete 03/01/20 Wound Culture - Final, Complete Staphylococcus Aureus Yajaira Goyal MD Mar 07, 2020 13:10
[2020-03-07 14:00] VITALS: BP 162/87
[2020-03-07] MEDS: RAMELTEON 8 MG TAB (ROZEREM) PO PRN (21:36)
[2020-03-07 22:00] VITALS: BP 181/93
[2020-03-07 22:30] VITALS: BP 156/81
[2020-03-08] MEDS: ceFAZolin SOD 2 GM in IV 1 EA IV SCH ×3 (01:38→17:33)
[2020-03-08] MEDS: PERCOCET 5MG/325MG TAB PO PRN ×3 (01:38→20:24)
[2020-03-08 06:00] VITALS: BP 179/89
[2020-03-08 06:37] LABS: HEMATOCRIT 25.6 % (36.0-47.0); HEMOGLOBIN 7.9 g/dl (12.0-15.5); MEAN CORPUSCULAR HEMOGLOBIN 28.5 pg (27.0-33.0); MEAN CORPUSCULAR HGB CONC 30.9 g/dl (32.0-36.5); MEAN CORPUSCULAR VOLUME 92.4 fl (80.0-96.0); PLATELET COUNT, AUTOMATED 659 10^3/uL (150-450); RED BLOOD COUNT 2.77 10^6/uL (4.00-5.40); WHITE BLOOD COUNT 12.1 10^3/uL (4.0-10.0)
[2020-03-08 07:10] LABS: CALCIUM LEVEL 8.9 MG/DL (8.8-10.2); CREATININE FOR GFR 1.16 MG/DL (0.55-1.30); GLOMERULAR FILTRATION RATE 50.2 (>45); POTASSIUM SERUM 4.8 MEQ/L (3.5-5.1)
[2020-03-08] MEDS: HumaLOG INSULIN (NovoLOG) PER UNIT SC SCH ×4 (07:26→20:16)
[2020-03-08] MEDS ORDERED: PERCOCET PO (07:37)
[2020-03-08] MEDS ORDERED: DOCU100C16 PO (07:37)
[2020-03-08] MEDS ORDERED: METO1TAB7 PO (07:37)
[2020-03-08] MEDS ORDERED: ACET1TAB55 PO (07:37)
[2020-03-08] MEDS ORDERED: CLONI1TA PO ×2 (07:37→14:57)
[2020-03-08] MEDS ORDERED: PROB250C PO (07:37)
[2020-03-08] MEDS ORDERED: KEFL500C17 PO (07:37)
[2020-03-08] MEDS: METOPROLOL SUCC (TopROL XL) 50MG **XL** TAB PO SCH (08:03)
[2020-03-08] MEDS: lisinopriL 20 MG TAB PO SCH (08:04)
[2020-03-08] MEDS: cloNIDine 0.1 MG TAB PO SCH ×2 (08:04→20:24)
[2020-03-08] MEDS: DOCUSATE SODIUM 100 MG CAP PO SCH ×2 (08:04→20:24)
[2020-03-08] MEDS: HEPARIN SOD (PORCINE) 5000UNITS/ML VIAL (J1644 PER 1000UNITS) SC SCH ×2 (08:04→20:24)
[2020-03-08] MEDS: metFORMIN XR 500MG TAB *GLUCOPHAGE XR PO SCH ×2 (08:04→17:32)
[2020-03-08 14:00] VITALS: BP 174/92
--- NOTE | 2020-03-08 14:55 | IPNPDOC ---
Date Seen The patient was seen on 03/08/20. Progress Note SUBJECTIVE: Changed diet to low sodium, consistent carb- may be reason why BP elevated still. Pain controlled. Denies chest pain, n/v/d, shortness of breath. OBJECTIVE: VITAL SIGNS: Please see below PHYSICAL EXAMINATION: CONSTITUTIONAL: No acute distress, resting comfortably, AAO x 3 EYES: PERRLA, EOM intact HENT, MOUTH: Normocephalic, atraumatic, moist mucous membranes NECK: SUPPLE, no JVD, no lymphadenopathy, no carotid bruit CV: Regular rate and rhythm, S1S2 normal, no murmurs/rubs/gallops RESPIRATORY: Clear to auscultation bilaterally, no rales/rhonchi/wheezes GI: BS positive in 4 quadrants, soft, nontender, nondistended, no rebound or guarding, no organomegaly : Deferred MUSCULOSKELETAL: Well healing wound on the dorsal aspect of left foot, multiple stitches, nonsuppurative, no foul smell. Decreased ROM left ankle. No cyanosis, clubbing. +1 pitting edema in the LLE INTEGUMENTARY: See wound above, otherwise skin is intact, no rashes, no lesi ons, no erythema NEUROLOGIC: Cranial Nerves II-XII are intact, no focal deficits PSYCHIATRIC: Mood and affect are normal CURRENT MEDICATIONS: Please see below LABORATORY DATA: Please see below IMAGING: No new imaging. ASSESSMENT: 64 y/o F treated for Osteomyelitis and cellulitis of toe of left foot, s/p debridement healing well. PLAN: 1.Osteomyelitis and cellulitis of toe of left foot, s/p debridement 03/06/20. C/w Ancef IV Q8 hrs, PT/OT. D/c on oral abx for total of 10 days. Likely discharge in the AM. Will need o/p PT/OT and f/u with podiatry. 2. Hypertension. BP 160-170. Changed diet to low sodium. C/w ACEi, BB, clonidine- resistant HTN. Monitor blood pressure and heart rate and adjust dose accordingly. 3. Diabetes mellitus II. BS controlled. C/w current regimen, AC/HS blood sugar checks, ISS. DISPOSITION: Plan is discharge home when medically improved. F/u with PCP and podiatry after discharge. VS, I&O, 24H, Fishbone Vital Signs/I&O Vital Signs Date Time Temp Pulse Resp B/P (MAP) Pulse Ox O2 Delivery O2 Flow Rate FiO2 03/08/20 14:00 98.6 99 18 174/92 (119) 96 Room Air I&O- Last 24 Hours up to 6 AM 03/08/20 06:00 Intake Total 2900 ml Output Total 1600 ml Balance 1300 ml Laboratory Data 24H LABS Laboratory Tests 2 03/07/20 17:08: Bedside Glucose (Misc Panel) 88 03/07/20 20:16: Bedside Glucose (Misc Panel) 160H 03/08/20 06:21: Nucleated Red Blood Cells % (auto) 0.0, Anion Gap 4L, Glomerular Filtration Rate 50.2, Calcium Level 8.9 03/08/20 11:26: Bedside Glucose (Misc Panel) 183H CBC/BMP Laboratory Tests 03/08/20 06:21 Microbiology Microbiology 03/02/20 Gram Stain - Final, Complete 03/02/20 Wound Culture - Final, Complete Staphylococcus Aureus 03/02/20 Anaerobic Culture - Final, Complete 03/01/20 Gram Stain - Final, Complete 03/01/20 Wound Culture - Final, Complete Staphylococcus Aureus Current Medications Current Medications Medications (Trade) Dose Ordered Sig/Anali Route PRN Reason Start Time Stop Time Status Last Admin Dose Admin Acetaminophen (Tylenol Tab) 650 mg Q4H PRN PO PAIN OR FEVER 03/01/20 15:30 03/05/20 20:34 Al Hydrox/Mg Hydrox/Simethicone (Mylanta) 30 ml DAILY PRN PO DYSPEPSIA 03/01/20 15:30 Cefazolin Sodium/ Dextrose 2 gm/IV Miscellaneous Supplies 50 ml @ 75 mls/hr Q8H IV 03/04/20 17:00 03/08/20 08:03 Ceftaroline Fosamil 300 mg/ Dextrose 50 ml @ 50 mls/hr Q12H IV 03/01/20 15:45 03/01/20 17:11 DC Ceftaroline Fosamil 400 mg/ Dextrose 50 ml @ 50 mls/hr Q12H IV 03/01/20 18:00 03/04/20 07:26 DC 03/04/20 05:07 Clonidine HCl (Catapres) 0.1 mg Q12H PO 03/01/20 21:00 03/01/20 18:47 DC Clonidine HCl (Catapres) 0.1 mg Q12H PO 03/02/20 09:00 03/08/20 08:04 Clonidine HCl (Catapres) 0.2 mg QHS PO 03/01/20 21:00 03/01/20 16:22 DC Dextrose (Dextrose 50%) 25 ml ASDIRECTED PRN IV SEE LABEL COMMENTS 03/01/20 15:30 Docusate Sodium (Colace) 100 mg BID PO 03/01/20 21:00 03/08/20 08:04 Glipizide (Glucotrol) 5 mg BID@0730,1730 PO 03/01/20 17:30 03/07/20 17:18 DC 03/07/20 08:44 Glucagon (Glucagon) 1 mg ASDIRECTED PRN SC SEE LABEL COMMENTS 03/01/20 15:30 Glucose (Glucose) 16 GM ASDIRECTED PRN PO SEE LABEL COMMENTS 03/01/20 15:30 Heparin Sodium (Porcine) (Heparin) 5,000 units Q12H SC 03/01/20 21:00 03/08/20 08:04 Home Med (Med Rec Complete!) ASDIRECTED XX 03/01/20 17:00 03/01/20 16:48 DC Insulin Human Lispro (HumaLOG INSULIN) SEE PROTOCOL TABLE AC SC 03/01/20 17:30 03/08/20 13:10 Insulin Human Lispro (HumaLOG INSULIN) SEE PROTOCOL TABLE QHS SC 03/01/20 21:00 03/02/20 20:19 Lactated Ringer's 1,000 ml @ 100 mls/hr Q10H IV 03/02/20 14:00 03/02/20 15:00 DC Lisinopril (Prinivil) 20 mg DAILY PO 03/06/20 09:00 03/08/20 08:04 Magnesium Hydroxide (Milk Of Magnesia) 30 ml DAILY PRN PO CONSTIPATION 03/01/20 15:30 Metformin HCl (Glucophage Xr) 500 mg BID@08,18 PO 03/01/20 18:00 03/08/20 08:04 Metoprolol Succinate (TopROL XL) 50 mg QAM PO 03/02/20 09:00 03/05/20 10:07 DC 03/05/20 08:41 Metoprolol Succinate (TopROL XL) 100 mg QAM PO 03/06/20 09:00 03/08/20 08:03 Ondansetron HCl (ZOFRAN INJection) 4 mg Q4HP PRN IV NAUSEA OR VOMITING 03/02/20 14:00 03/02/20 15:00 DC Oxycodone/ Acetaminophen (Percocet 5mg/ 325mg Tablet) 1 tab ASDIRECTED PRN PO PAIN LEVEL 1-4 03/02/20 14:00 03/02/20 15:00 DC Oxycodone/ Acetaminophen (Percocet 5mg/ 325mg Tablet) 1 tab Q4HP PRN PO PAIN 03/02/20 15:00 03/08/20 09:54 Ramelteon (Rozerem) 8 mg QHSP PRN PO INSOMNIA 03/02/20 20:00 03/07/20 21:36 Vancomycin HCl 1000 mg/IV Miscellaneous Supplies 1 each/ Dextrose 270 ml @ 270 mls/hr Q12H IV 03/01/20 15:30 03/01/20 15:37 DC Vancomycin HCl 1000 mg/IV Miscellaneous Supplies 1 each/ Dextrose 270 ml @ 270 mls/hr Q12H IV 03/04/20 07:30 03/04/20 08:07 DC Allergies Coded Allergies: No Known Allergies (Unverified , 01/29/19) Yajaira Goyal MD Mar 08, 2020 14:55
[2020-03-08] MEDS: RAMELTEON 8 MG TAB (ROZEREM) PO PRN (20:24)
[2020-03-08 22:00] VITALS: BP 172/90
[2020-03-09] MEDS: ceFAZolin SOD 2 GM in IV 1 EA IV SCH ×2 (01:02→08:22)
[2020-03-09] MEDS: PERCOCET 5MG/325MG TAB PO PRN ×2 (01:02→08:29)
[2020-03-09 06:00] VITALS: BP 171/93
[2020-03-09 06:12] LABS: HEMATOCRIT 23.3 % (36.0-47.0); HEMOGLOBIN 7.3 g/dl (12.0-15.5); MEAN CORPUSCULAR HGB CONC 31.3 g/dl (32.0-36.5); MEAN CORPUSCULAR VOLUME 92.5 fl (80.0-96.0); PLATELET COUNT, AUTOMATED 615 10^3/uL (150-450); RED BLOOD COUNT 2.52 10^6/uL (4.00-5.40); WHITE BLOOD COUNT 11.9 10^3/uL (4.0-10.0)
[2020-03-09 06:41] LABS: CALCIUM LEVEL 8.5 MG/DL (8.8-10.2); CREATININE FOR GFR 1.12 MG/DL (0.55-1.30); GLOMERULAR FILTRATION RATE 52.3 (>45); POTASSIUM SERUM 4.8 MEQ/L (3.5-5.1)
[2020-03-09 08:21] VITALS: BP 171/93
[2020-03-09] MEDS: METOPROLOL SUCC (TopROL XL) 50MG **XL** TAB PO SCH (08:21)
[2020-03-09] MEDS: cloNIDine 0.1 MG TAB PO SCH (08:21)
[2020-03-09] MEDS: DOCUSATE SODIUM 100 MG CAP PO SCH (08:21)
[2020-03-09] MEDS: lisinopriL 20 MG TAB PO SCH (08:21)
[2020-03-09] MEDS: metFORMIN XR 500MG TAB *GLUCOPHAGE XR PO SCH (08:21)
[2020-03-09] MEDS: HumaLOG INSULIN (NovoLOG) PER UNIT SC SCH (08:22)
[2020-03-09] MEDS: HEPARIN SOD (PORCINE) 5000UNITS/ML VIAL (J1644 PER 1000UNITS) SC SCH (08:22)
--- NOTE | 2020-03-09 18:44 | DS.PDOC ---
Discharge Summary General Date of Admission Mar 01, 2020 at 15:30 Date of Discharge 03/09/20 Attending Physician: Yajaira Goyal MD Specialist/Consultants Involve: AGUILAR DUNBAR DPM Discharge Summary HISTORY OF PRESENT ILLNESS: This is 64 years old female with past medical history of diabetes mellitus, hypertension, he was sent from wound care clinic by Dr. Lucero secondary to right foot infection which as per Dr. Lucero was positive for Staphylococcus aureus. Dr. Faith from podiatry was called and he also recommended patient to be transferred to the hospital for further management. As per patient, she had developed infection of the left second toe which had become swollen and tender. She was seen by a doctor at [facility] yesterday and he cleaned up the area, and today she was seen at wound care center with Dr. Stoddard decided to transfer her to hospital for further management and podiatry consult. Patient denies chest pain, shortness of breath, nausea, vomiting, abdominal pain, fever, etc. HOSPITAL COURSE: Foot MRI done on 03/01/20 showed cellulitis/myositis with probable abscess formation along the dorsum of the, 2nd toe and developing osteomyelitis of the 2nd proximal phalanx. She was started on IV ceftaroline. Podiatry was consulted and on 03/02/20 patient went for Left 2nd toe amputation and incision and drainage for Left 2nd toe gangrene and abscess. Cx's were sent. wound culture later grew MSSA and abx were changed to IV Ancef 2 g IV every 8 hours. She had another bedside debridement done on 03/06/20 for some necrotic tissue. She continued to perform well with PT/OT and left foot improved with continued abx use. Her blood pressure was at times high with systolic 160-170 mmHG, she remained asymptomatic. Medication regiment was adjusted. On 03/09/20, patient was discharged home with an additional 10 day course of keflex per podiatry. She has f/u with both podiatry and PCP within 1-2 weeks after discharge. She denies i ncreased pain, n/v/d, fevers, chills, shortness of breath. REVIEW OF SYSTEMS: CONSTITUTIONAL: Denies lack of energy, unexplained weight gain or weight loss, loss of appetite, fever, night sweats EYES: Denies eye drainage, eye pain, visual changes, dry/irritated eye EARS, NOSE, MOUTH, THROAT: Denies difficulty hearing, ringing in ears, mouth sores, loose teeth, sore throat, facial numbness or pain NECK: Denies swollen glands CARDIOVASCULAR: Denies irregular heartbeat, racing heart, chest pains, swelling of feet or legs, pain in legs with walking RESPIRATORY: Denies shortness of breath, night sweats, wheezing, sputum production, oxygen at home, coughing up blood, cough lasting > 1 month GASTROINTESTINAL: Denies abdominal pain, constipation, bloody stool, diarrhea, heartburn, nausea, vomiting GENITOURINARY: Denies painful urination, bloody urine, frequent urination, urgency, leaking urine, impotence MUSCULOSKELETAL: Denies muscle pain INTEGUMENTARY: Denies rash, itching, new skin lesion, change in existing skin lesion, hair loss or increase, breast changes. NEUROLOGICAL: Denies headaches, dizziness, numbness or tingling PSYCHIATRIC: Denies depression, anxiety, recurrent bad thoughts, mood swings, hallucinations PAST MEDICAL HISTORY: Diabetes mellitus Hypertension Diabetic retinopathy PAST SURGICAL HISTORY: 1. Left 2nd toe amputation and incision and drainage 03/02/20 2. Left foot debridement 03/06/20 3. Right redness laser surgery FAMILY HISTORY: mother- diabetes SOCIAL HISTORY: * Smoker: Denies Alcohol: Denies Drugs: denies ALLERGIES: Please see below. DISCHARGE MEDICATIONS: Please see below. PHYSICAL EXAMINATION: CONSTITUTIONAL: No acute distress, resting comfortably, AAO x 3 EYES: PERRLA, EOM intact HENT, MOUTH: Normocephalic, atraumatic, moist mucous membranes NECK: SUPPLE, no JVD, no lymphadenopathy, no carotid bruit CV: Regular rate and rhythm, S1S2 normal, no murmurs/rubs/gallops RESPIRATORY: Clear to auscultation bilaterally, no rales/rhonchi/wheezes GI: BS positive in 4 quadrants, soft, nontender, nondistended, no rebound or g uarding, no organomegaly : Deferred MUSCULOSKELETAL: Well healing wound on the dorsal aspect of left foot, multiple stitches, nonsuppurative, no foul smell. Decreased ROM left ankle. No cyanosis, clubbing. +1 pitting edema in the LLE INTEGUMENTARY: See wound above, otherwise skin is intact, no rashes, no lesions, no erythema NEUROLOGIC: Cranial Nerves II-XII are intact, no focal deficits PSYCHIATRIC: Mood and affect are normal DISCHARGE MEDICATIONS: Please see below LABORATORY DATA: Please see below IMAGING: Left foot MRI: 1. Limited noncontrast examination , 2. Cellulitis/myositis with probable abscess formation along the dorsum of the, 2nd toe, as described above. 3. Query developing osteomyelitis of the 2nd proximal phalanx, as described above ASSESSMENT: 64 y/o F treated for Osteomyelitis and cellulitis of toe of left foot, s/p amputation and debridement healing well. PLAN: 1.Osteomyelitis and cellulitis of toe of left foot, s/p amputation of left 2nd toe (03/02/20) and further debridement (03/06/20). C/w oral keflex for total of 10 days, o/p PT/OT and f/u with podiatry, PCP. Pain stable and will continue with similar pain regimen at discharge. 2. Resistent hypertension. BP 160-170. Recommend continue low sodium, ACEi, BB, clonidine. Asymptomatic. F/u with PCP. 3. Diabetes mellitus II. BS controlled. C/w current regimen, AC/HS blood sugar checks, ISS. DISPOSITION: Discharge home today in improved condition.. F/u with PCP and podiatry after discharge, o/p PT/OT. TIME SPENT ON DISCHARGE: 35 minutes. Vital Signs/I&Os Vital Signs Date Time Temp Pulse Resp B/P (MAP) Pulse Ox O2 Delivery O2 Flow Rate FiO2 03/09/20 08:59 18 03/09/20 08:21 171/93 03/09/20 08:21 82 03/09/20 06:00 98.1 98 Room Air I&O- Last 24 Hours up to 6 AM0 03/09/20 06:00 Intake Total 1710 ml Output Total 0 ml Balance 1710 ml Laboratory Data Labs 24H Laboratory Tests 2 03/08/20 19:59: Bedside Glucose (Misc Panel) 192H 03/09/20 05:50: Nucleated Red Blood Cells % (auto) 0.0, Anion Gap 3L, Glomerular Filtration Rate 52.3, Calcium Level 8.5L CBC/BMP Laboratory Tests 03/09/20 05:50 FSBS Laboratory Tests Test 03/08/20 19:59 Range/Units Bedside Glucose (Misc Panel) 192 80-115 MG/DL Microbiology Microbiology 03/02/20 Gram Stain - Final, Complete 03/02/20 Wound Culture - Final, Complete Staphylococcus Aureus 03/02/20 Anaerobic Culture - Final, Complete 03/01/20 Gram Stain - Final, Complete 03/01/20 Wound Culture - Final, Complete Staphylococcus Aureus Discharge Medications Scheduled Cephalexin (Keflex) 500 Mg Capsule, 500 MG PO TID Clonidine Hcl (Clonidine HCl) 0.1 Mg Tablet, 0.1 MG PO BID Docusate Sodium (Docusate Sodium) 100 Mg Capsule, 100 MG PO BID Glipizide (Glipizide) 5 Mg Tab, 5 MG PO DAILY, (Reported) Lisinopril (Lisinopril) 20 Mg Tablet, 20 MG PO DAILY, (Reported) Metformin HCl (Metformin HCl ER) 500 Mg Tab.er.24h, 1,000 MG PO BIDWM, (Reported ) [employer] Metoprolol Succinate (Metoprolol Succinate) 50 Mg Tab.er.24h, 100 MG PO QAM Saccharomyces Boulardii (Probiotic) 250 Mg Capsule, 1 CAP PO BID Scheduled PRN Acetaminophen (Acetaminophen) 325 Mg Tablet, 650 MG PO Q6HP PRN for PAIN OR FEVER Oxycodone/Acetaminophen (Oxycodone-Acetaminophen 5-325) 1 Each Tablet, 1 TAB PO Q6HP PRN for PAIN Allergies Coded Allergies: No Known Allergies (Unverified , 01/29/19) Yajaira Goyal MD Mar 09, 2020 18:44
== END 2020-03-09 11:18 | disposition home health service (06) | DRG 617 ==
LOC: M MS5PR 15:30
PROVIDERS: ADMIT Internal Medicine; ATTEND Internal Medicine
PROC: 0LDW0ZZ Extraction of Left Foot Tendon, Open Approach (ICD-10-PCS; 2020-03-02)
PROC: 0Y6S0Z0 Detachment at Left 2nd Toe, Complete, Open Approach (ICD-10-PCS; principal; 2020-03-02 12:30)
DX: E11.69 Type 2 diabetes mellitus with other specified complication (principal); M86.172 Other acute osteomyelitis, left ankle and foot; E11.52 Type 2 diabetes mellitus with diabetic peripheral angiopathy with gangrene; I10 Essential (primary) hypertension; B95.61 Methicillin susceptible Staphylococcus aureus infection as the cause of diseases classified elsewhere; L03.032 Cellulitis of left toe; M19.072 Primary osteoarthritis, left ankle and foot; E11.319 Type 2 diabetes mellitus with unspecified diabetic retinopathy without macular edema; Z79.84 Long term (current) use of oral hypoglycemic drugs; Z79.899 Other long term (current) drug therapy

== ENCOUNTER → 2020-05-25 | Outpatient (REF) | payer MEDICARE, MEDICAID ==
[~2020-05-25] MED LIST changes: +ACET1TAB55 PO; +AMOX875T2 PO; +CLONI1TA PO; +DOCU100C16 PO; +KEFL500C17 PO; +LISI-538 PO; +METF-723 PO; +METO1TAB7 PO; +PERCOCET PO; +PROB250C PO
== END ==
LOC: M LAB REF 17:56
PROVIDERS: ATTEND Surgery
DX: L97.523 Non-pressure chronic ulcer of other part of left foot with necrosis of muscle (principal)
CPT/HCPCS: 15271; 88304; 88311; Q4110

== ENCOUNTER 2020-07-04 07:05 | Day surgery (SDC) | payer MEDICARE, MEDICAID ==
[2020-07-04] MEDS ORDERED: LIDOCAINE 1% MDV 20ML VIAL As Ordered ONE ×2 (08:39→11:43)
[2020-07-04] MEDS ORDERED: BUPIVACAINE HCL 0.5% 10ML VIAL As Ordered ONE ×2 (08:39→11:43)
[2020-07-04] MEDS ORDERED: dexameTHASONE 4 MG/ML 1ML VIAL (J1100 PER 1MG) As Ordered ONE (08:40)
[2020-07-04] MEDS ORDERED: LIDOCAINE 2% 100MG/5ML SDV (FOR ANES.) As Ordered ONE (11:09)
[2020-07-04] MEDS ORDERED: propofoL 200 MG/20 ML VIAL As Ordered ONE (11:09)
[2020-07-04] MEDS ORDERED: MIDAZOLAM INJ 2MG/2ML VIAL (J2250 PER 1MG) As Ordered ONE (11:42)
[2020-07-04] MEDS ORDERED: fentaNYL 100 MCG/2 ML INJECTION (J3010) As Ordered ONE (11:42)
[2020-07-04] MEDS ORDERED: ceFAZolin 2 GM/D5W 50 ML IV BAG (J0690 PER 500MG) As Ordered ONE (11:49)
[2020-07-04] MEDS ORDERED: METOPROLOL SUCC *XL* 25MG TAB (TopROL *XL*) As Ordered ONE ×2 (12:38→12:49)
[2020-07-04] MEDS ORDERED: lisinopriL 10 MG TAB As Ordered ONE (13:44)
[2020-07-04] MEDS ORDERED: cloNIDine 0.1 MG TAB As Ordered ONE (13:45)
--- NOTE | 2020-09-05 12:13 | RO ---
DATE OF SURGERY: 07/04/2020 SURGEON: Alexey Alvarado DPM AUDIO VISUAL AIDS DIRECTOR: None. PREOPERATIVE DIAGNOSIS: Left third toe gangrene. POSTOPERATIVE DIAGNOSIS: Left third toe gangrene. PROCEDURE: Left third toe amputation. ANESTHESIA: Monitored anesthesia care. PREOPERATIVE INJECTION: 6 cc of a one-to-one mixture of 1% lidocaine plain and 0.5% Marcaine plain. ESTIMATED BLOOD LOSS: Minimal. SPECIMENS: Left third toe. COMPLICATIONS: None. CONDITION: Stable. MATERIALS: 3-0 nylon. INDICATIONS: Kait Hickman is a patient who was brought to the hospital with third toe gangrene. She had previous second toe amputation secondary to osteomyelitis and abscess. She has undergone [facility] with [facility], but has had worsening of her left third toe. The decision was made to bring her to the hospital for third toe amputation. The patient's side and site were identified and marked in the preoperative area. Consent was reviewed and obtained. The risks, complications, and alternatives to the procedure were explained to the patient in detail and all questions were answered. PROCEDURE: The patient was brought to the operating room and placed on the operating room table in the supine position. Monitored anesthesia care was delivered by the anesthesia team. Preoperative injection of 6 cc of a one-to-one mixture of 1% lidocaine plain and 0.5% Marcaine plain were injected to the left foot. The left foot was prepped and draped in normal sterile fashion. No tourniquet was used during the procedure. The toe was noted to be gangrenous and this was disarticulated at the metatarsophalangeal joint using a #15 blade in an elliptical fashion. The site was irrigated with normal saline. The wound was closed using 3-0 nylon. Sterile dressings were applied. The patient was brought to the PACU with vital signs stable and neurovascular status intact. She will be following up with Dr. De Jesus at [facility] in two days. TERRY
== END 2020-07-04 11:45 | disposition home or self-care (01) ==
LOC: M SDC 07:05
PROVIDERS: ATTEND Podiatrist Foot & Ankle Surgery
DX: I96 Gangrene, not elsewhere classified (principal); E11.52 Type 2 diabetes mellitus with diabetic peripheral angiopathy with gangrene; E11.40 Type 2 diabetes mellitus with diabetic neuropathy, unspecified; I10 Essential (primary) hypertension; Z79.84 Long term (current) use of oral hypoglycemic drugs
CPT/HCPCS: 28820; 88305; 88311; J0690; J1100; J2250; J3010; U0002

== ENCOUNTER 2021-06-16 17:46 | Emergency (ER) | payer MEDICARE, MEDICAID ==
[~2021-06-16] VITALS: Ht 154.9 cm; Wt 59.4 kg
[~2021-06-16 17:46] MED LIST changes: -LISI-538 PO; +LISI20TA33 PO
--- NOTE | 2021-06-16 18:24 | REPVR ---
PROCEDURE INFORMATION: Exam: CT Head Without Contrast Exam date and time: 06/16/2021 6:10 PM Age: 65 years old Clinical indication: Numbness / parasthesia; Right; Additional info: Numbness right side TECHNIQUE: Imaging protocol: Computed tomography of the head without contrast. Radiation optimization: All CT scans at this facility use at least one of these dose optimization techniques: automated exposure control; mA and/or kV adjustment per patient size (includes targeted exams where dose is matched to clinical indication); or iterative reconstruction. COMPARISON: No relevant prior studies available. FINDINGS: Brain: No acute intracerebral abnormality or injury. No acute infarct or intracerebral bleed. Mild patchy periventricular leukomalacia in both cerebral hemispheres, consistent most likely with chronic underlying small vessel / microvascular ischemic disease. [place] Stroke Program Early CT Score (ASPECTS score) = 10. Cerebral ventricles: No ventriculomegaly. Paranasal sinuses: Visualized sinuses are unremarkable. No fluid levels. Mastoid air cells: Visualized mastoid air cells are well aerated. Orbital cavity: A right ocular globe prosthesis is present. Bones/joints: Unremarkable. No acute fracture. Soft tissues: Unremarkable. IMPRESSION: 1. No acute intracerebral abnormality or injury. No acute infarct or intracerebral bleed. 2. Mild patchy periventricular leukomalacia in both cerebral hemispheres, consistent most likely with chronic underlying small vessel / microvascular ischemic disease. 3. [place] Stroke Program Early CT Score (ASPECTS score) = 10. 4. A right ocular globe prosthesis is present. Electronically signed by: Tyrell Valverde On 06/16/2021 18:23:18 PM
[2021-06-16 19:17] LABS: BASO % 0.3 % (0.0-1.0); EOS % 0.3 % (0.0-3.0); LYMPH # 1.7 10^3/uL (1.5-5.0); LYMPH % 24.5 % (24.0-44.0); MEAN CORPUSCULAR HEMOGLOBIN 28.8 pg (27.0-33.0); MEAN CORPUSCULAR HGB CONC 31.4 g/dl (32.0-36.5); MEAN CORPUSCULAR VOLUME 91.6 fl (80.0-96.0); MONO # 0.5 10^3/uL (0.0-0.8); MONO % 6.6 % (2.0-8.0); NEUTROPHILS # 4.8 10^3/uL (1.5-8.5); PLATELET COUNT, AUTOMATED 360 10^3/uL (150-450); RED BLOOD COUNT 3.82 10^6/uL (4.00-5.40)
[2021-06-16 19:29] LABS: INR 0.88; PROTHROMBIN TIME 12.1 SECONDS (12.5-14.3)
[2021-06-16 19:42] LABS: BILIRUBIN,TOTAL 0.3 MG/DL (0.2-1.0); CALCIUM LEVEL 9.6 MG/DL (8.8-10.2); CREATININE FOR GFR 1.58 MG/DL (0.55-1.30); GLOMERULAR FILTRATION RATE 42.5 (>45); POTASSIUM SERUM 5.3 MEQ/L (3.5-5.1); TOTAL PROTEIN 7.3 GM/DL (6.4-8.2)
[2021-06-16] MEDS ORDERED: NS 1,000 ML IV ONE (19:50)
[2021-06-16] MEDS ORDERED: cloNIDine 0.1MG TABLET PO ONE (22:05)
--- NOTE | 2021-06-16 22:17 | ECGEPIP ---
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
[2021-06-16 22:47] VITALS: BP 205/95
== END 2021-06-16 22:51 | disposition home or self-care (01) ==
LOC: M ED 17:46
DX: R20.2 Paresthesia of skin (principal); E11.9 Type 2 diabetes mellitus without complications; I10 Essential (primary) hypertension; Z79.899 Other long term (current) drug therapy; Z79.84 Long term (current) use of oral hypoglycemic drugs

== ENCOUNTER → 2022-09-17 | Outpatient (CLI) | payer MEDICARE, MEDICAID | LOC: M RAD 12:09 | PROVIDERS: ATTEND Podiatrist Foot & Ankle Surgery | DX: I73.9 Peripheral vascular disease, unspecified (principal) ==

== ENCOUNTER → 2022-10-14 | Outpatient (POV) | payer MEDICARE, MEDICAID ==
[~2022-10-14] VITALS: Ht 154.9 cm; Wt 58.6 kg
[2022-10-14 10:10] VITALS: BP 160/78
== END ==
LOC: M IRPOV 09:54
PROVIDERS: ATTEND Radiology Diagnostic Radiology
DX: E11.9 Type 2 diabetes mellitus without complications (principal); I10 Essential (primary) hypertension; L60.0 Ingrowing nail; Z79.899 Other long term (current) drug therapy; Z79.84 Long term (current) use of oral hypoglycemic drugs; Z89.422 Acquired absence of other left toe(s)

== ENCOUNTER 2025-05-30 10:30 | Inpatient (IN) | payer MEDICARE, MEDICAID ==
[~2025-05-30] VITALS: Ht 154.9 cm; Wt 54.0 kg
[2025-05-30] VITALS (8 sets, daily range): BP systolic 152–168; BP diastolic 81–94; TEMP 97–97.7; O2SAT 94–100
[~2025-05-30 10:30] MED LIST changes: +GLIP5TAB17 PO; -GLIP5TAB8 PO; +METF-1113 PO; -METF-723 PO
[2025-05-30] MEDS ORDERED: ONDANSETRON 4MG 2ML VIAL As Ordered ONE (11:12)
[2025-05-30] MEDS ORDERED: MIDAZOLAM INJ 2 MG/2 ML VIAL As Ordered ONE (11:12)
[2025-05-30] MEDS ORDERED: LIDOCAINE 2% 100 MG/5 ML SDV (FOR ANES.) As Ordered ONE (11:12)
[2025-05-30] MEDS ORDERED: dexmedeTOMIDine (4 MCG/ML) 200 MCG/50 ML BTL As Ordered ONE (11:17)
[2025-05-30] MEDS ORDERED: DEXTROSE 50% 50 ML SYRINGE IV PRN ×2 (11:45→16:10)
[2025-05-30] MEDS ORDERED: GLUCOSE 4 GM CHEW PO PRN ×2 (11:45→16:10)
[2025-05-30] MEDS ORDERED: GLUCAGON INJ 1 MG VIAL SC PRN ×2 (11:45→16:10)
[2025-05-30] MEDS: INSULIN LISPRO (NovoLOG) PER UNIT SC PRN ×2 (11:55→13:00)
[2025-05-30] MEDS: LIDOCAINE 1% SDV 30 ML VIAL As Ordered ONE (12:17)
[2025-05-30 13:39] LABS: BASO # 0.0 10^3/uL (0.0-0.2); BASO % 0.4 % (0.0-1.0); EOS # 0.1 10^3/uL (0.0-0.5); EOS % 1.1 % (0.0-3.0); LYMPH # 2.2 10^3/uL (1.5-5.0); LYMPH % 26.7 % (24.0-44.0); MONO # 0.6 10^3/uL (0.0-0.8); MONO % 7.8 % (2.0-8.0); NEUTROPHILS # 5.2 10^3/uL (1.5-8.5); NEUTROPHILS % 63.8 % (36.0-66.0); PLATELET COUNT, AUTOMATED 443 10^3/uL (150-450); PLATELET COUNT, AUTOMATED 446 10^3/uL (150-450)
[2025-05-30 14:01] LABS: CALCIUM LEVEL 9.0 MG/DL (8.3-10.6); CARBON DIOXIDE LEVEL 28.0 MMOL/L (20-31); CHLORIDE LEVEL 105.0 MMOL/L (98-107); CREATININE FOR GFR 1.07 MG/DL (0.55-1.30); GLOMERULAR FILTRATION RATE 56.6 (>45); POTASSIUM SERUM 5.1 MMOL/L (3.5-5.1); SODIUM LEVEL 142.0 MMOL/L (136-145)
[2025-05-30 14:05] LABS: ALT/SGPT 11.0 U/L (7.0-40); AST/SGOT 12.0 U/L (<34); CALCIUM LEVEL 9.2 MG/DL (8.3-10.6); CARBON DIOXIDE LEVEL 28.0 MMOL/L (20-31); CHLORIDE LEVEL 104.0 MMOL/L (98-107); CREATININE FOR GFR 1.06 MG/DL (0.55-1.30); GLOMERULAR FILTRATION RATE 57.2 (>45); POTASSIUM SERUM 5.1 MMOL/L (3.5-5.1); SODIUM LEVEL 142.0 MMOL/L (136-145)
[2025-05-30] MEDS: VANCOMYCIN HCL 1,000 MG, VIAL MATE ADAPTER 1 EACH in NS 250 ML IV ONE (14:37)
[2025-05-30] MEDS: PIPERACILLIN/TAZOBACTAM SOD 3.375 GM in DEXTROSE 5% (D5W) ADV/MINI-BAG 50 ML IV SCH (14:37)
[2025-05-30] MEDS ORDERED: CLON-412 PO (14:49)
[2025-05-30] MEDS ORDERED: METO1TAB33 PO (14:51)
[2025-05-30] MEDS ORDERED: GLIP10TA15 PO (14:51)
[2025-05-30] MEDS ORDERED: HOME MED LIST COMPLETE! XX SCH (14:55)
[2025-05-30] MEDS: INSULIN LISPRO (NovoLOG) PER UNIT SC SCH ×2 (17:38→20:48)
[2025-05-30] MEDS: ENOXAPARIN 30 MG/0.3 ML SYRINGE (J1650 PER 10MG) SC SCH (20:40)
[2025-05-30] MEDS: VANCOMYCIN HCL 500 MG in DEXTROSE 5% (D5W) MINI-BAG PLU 100 ML IV SCH (21:47)
[2025-05-30] MEDS ORDERED: ACETAMINOPHEN 325 MG TAB PO PRN (22:55)
[2025-05-30] MEDS ORDERED: KETOROLAC 30 MG/ML 1 ML VIAL IV PRN ×2 (22:55)
[2025-05-30] MEDS: ACETAMINOPHEN *IV* 1,000 MG in IV 1 EA IV ONE (23:08)
[2025-05-30] MEDS: METHOCARBAMOL 1,000 MG/10 ML VIAL IV ONE (23:44)
[2025-05-31 01:00] VITALS: BP 143/73; TEMP 97.5; O2SAT 99
[2025-05-31 03:26] VITALS: BP 143/73; TEMP 97.5; O2SAT 100
[2025-05-31 06:47] LABS: PLATELET COUNT, AUTOMATED 414 10^3/uL (150-450)
[2025-05-31 07:23] LABS: ALT/SGPT < 9 U/L (7.0-40); AST/SGOT 13 U/L (<34); CALCIUM LEVEL 8.7 MG/DL (8.3-10.6); CARBON DIOXIDE LEVEL 28 MMOL/L (20-31); CHLORIDE LEVEL 102 MMOL/L (98-107); CREATININE FOR GFR 1.31 MG/DL (0.55-1.30); GLOMERULAR FILTRATION RATE 44.4 (>45); POTASSIUM SERUM 4.6 MMOL/L (3.5-5.1); SODIUM LEVEL 141 MMOL/L (136-145)
[2025-05-31] MEDS ORDERED: ENOXAPARIN 40 MG/0.4 ML SYRINGE (J1650 PER 10MG) SC SCH (09:00)
[2025-05-31 12:00] VITALS: BP 169/92; TEMP 97.5; O2SAT 99
[2025-05-31] MEDS ORDERED: PIPERACILLIN/TAZOBACTAM SOD 2.25 GM in DEXTROSE 5% (D5W) ADV/MINI-BAG 50 ML IV SCH (13:00)
[2025-05-31] MEDS ORDERED: DOXY-440 PO (17:08)
[2025-05-31] MEDS ORDERED: METR-265 PO (17:09)
[2025-05-31] MEDS ORDERED: SODIUM CHLORIDE 0.9% 1000 ML IV ONE (17:10)
[2025-05-31] MEDS: LR 1,000 ML IV ONE (17:21)
[2025-05-31 20:16] LABS: CALCIUM LEVEL 9.0 MG/DL (8.3-10.6); CARBON DIOXIDE LEVEL 30.0 MMOL/L (20-31); CHLORIDE LEVEL 102.0 MMOL/L (98-107); CREATININE FOR GFR 1.3 MG/DL (0.55-1.30); GLOMERULAR FILTRATION RATE 44.8 (>45); POTASSIUM SERUM 4.4 MMOL/L (3.5-5.1); SODIUM LEVEL 143.0 MMOL/L (136-145)
[2025-05-31 20:22] VITALS: BP 150/110; TEMP 97.3; O2SAT 99
[2025-06-01 04:04] VITALS: BP 134/92; TEMP 97.5; O2SAT 96
[2025-06-01 07:45] LABS: PLATELET COUNT, AUTOMATED 432 10^3/uL (150-450)
[2025-06-01 08:08] LABS: CALCIUM LEVEL 9.0 MG/DL (8.3-10.6); CARBON DIOXIDE LEVEL 29.0 MMOL/L (20-31); CHLORIDE LEVEL 104.0 MMOL/L (98-107); CREATININE FOR GFR 1.14 MG/DL (0.55-1.30); GLOMERULAR FILTRATION RATE 52.4 (>45); POTASSIUM SERUM 4.3 MMOL/L (3.5-5.1); SODIUM LEVEL 144.0 MMOL/L (136-145)
[2025-06-01] MEDS ORDERED: ZYVO1TAB PO (08:10)
[2025-06-01] MEDS ORDERED: LIPI20TA PO (08:22)
[2025-06-01] MEDS ORDERED: ASPI81TA26 PO (08:22)
[2025-06-01 08:39] VITALS: BP 176/92
[2025-06-01 09:07] LABS: ESTIMATED AVERAGE GLUCOSE 206.0 MG/DL (60-110)
[2025-06-01] MEDS ORDERED: VANCOMYCIN HCL 1,000 MG, VIAL MATE ADAPTER 1 EACH in NS 250 ML IV SCH (10:00)
== END 2025-06-01 11:48 | disposition home health service (06) | DRG 617 ==
LOC: M SDC 10:30 → M RR INP 13:00 → M MS5PR 13:35
PROVIDERS: ADMIT Student in an Organized Health Care Education/Training Program; ATTEND Podiatrist Foot & Ankle Surgery
PROC: 0Y6P0Z0 Detachment at Right 1st Toe, Complete, Open Approach (ICD-10-PCS; principal; 2025-05-30 11:30)
DX: E11.69 Type 2 diabetes mellitus with other specified complication (principal); M86.671 Other chronic osteomyelitis, right ankle and foot; I10 Essential (primary) hypertension; E11.319 Type 2 diabetes mellitus with unspecified diabetic retinopathy without macular edema; Z89.422 Acquired absence of other left toe(s); E11.51 Type 2 diabetes mellitus with diabetic peripheral angiopathy without gangrene; Z79.84 Long term (current) use of oral hypoglycemic drugs; Z79.899 Other long term (current) drug therapy; N17.9 Acute kidney failure, unspecified; Z79.82 Long term (current) use of aspirin

== ENCOUNTER → 2025-06-14 | Outpatient (POV) | payer MEDICARE, MEDICAID ==
[~2025-06-14] VITALS: Ht 154.9 cm; Wt 55.9 kg
[~2025-06-14] MED LIST changes: +ASPI81TA26 PO; +CLON-412 PO; +DOXY-440 PO; +GLIP10TA15 PO; +LIPI20TA PO; +METO1TAB33 PO; +METR-265 PO; +ZYVO1TAB PO
[2025-06-14 09:45] VITALS: BP 180/96; O2SAT 100
== END ==
LOC: M IRPOV 09:31
PROVIDERS: ATTEND Registered Nurse School
DX: E11.51 Type 2 diabetes mellitus with diabetic peripheral angiopathy without gangrene (principal); E11.69 Type 2 diabetes mellitus with other specified complication; M86.9 Osteomyelitis, unspecified; Z79.82 Long term (current) use of aspirin; Z79.84 Long term (current) use of oral hypoglycemic drugs; Z79.899 Other long term (current) drug therapy

== ENCOUNTER → 2025-06-27 | Outpatient (CLI) | payer MEDICARE, MEDICAID | LOC: M RAD 12:33 | PROVIDERS: ATTEND Podiatrist Foot & Ankle Surgery | DX: Z53.9 Procedure and treatment not carried out, unspecified reason (principal) ==

== ENCOUNTER → 2025-08-29 | Outpatient (CLI) | payer MEDICARE, MEDICAID ==
[~2025-08-29] VITALS: Ht 154.9 cm; Wt 55.9 kg
[~2025-08-29] MED LIST changes: +ACETAMINOPHEN 325 MG TAB PO PRN; -METF-1113 PO; +METF-1201 PO; +NS (Normal Saline) 0.9% 1,000 ML IV SCH; +ONDANSETRON 4MG 2ML VIAL IV PRN; +PERCOCET 5MG/325MG TAB PO PRN
[2025-08-29 09:40] VITALS: TEMP 97.4
[2025-08-29 10:13] LABS: PLATELET COUNT, AUTOMATED 315 10^3/uL (150-450)
[2025-08-29 10:29] LABS: INR 0.83
[2025-08-29 10:36] LABS: CALCIUM LEVEL 9.1 MG/DL (8.3-10.6); CARBON DIOXIDE LEVEL 27.0 MMOL/L (20-31); CHLORIDE LEVEL 103.0 MMOL/L (98-107); CREATININE FOR GFR 1.09 MG/DL (0.55-1.30); GLOMERULAR FILTRATION RATE 55.3 (>45); POTASSIUM SERUM 4.0 MMOL/L (3.5-5.1); SODIUM LEVEL 140.0 MMOL/L (136-145)
[2025-08-29] MEDS: MIDAZOLAM INJ 2 MG/2 ML VIAL IV PRN (11:31)
[2025-08-29] MEDS: NS (Normal Saline) 0.9% 1,000 ML IV SCH (11:32)
[2025-08-29] MEDS: LABETALOL 100 MG/20 ML VIAL IV STA ×3 (11:53→12:23)
[2025-08-29] MEDS: HEPARIN 1,000 UNITS/ML 10 ML VIAL (FOR RADIOLOGY & DIALYSIS ONLY) IV PRN (12:08)
[2025-08-29] MEDS: hydrALAZINE 20 MG/ML 1 ML VIAL IV STA (12:36)
[2025-08-29] MEDS: NITROGLYCERIN IN D5W 25 MG/250 ML (100 MCG/ML) IV STA (13:10)
[2025-08-29] MEDS: ISOVUE-300 61% 100 ML VIAL IV SCH (13:17)
[2025-08-29] MEDS: LIDOCAINE 1% MDV 20 ML VIAL SC SCH (13:17)
[2025-08-29 15:30] VITALS: BP 163/72; O2SAT 100
== END ==
LOC: M IRPRO 09:33
PROVIDERS: ATTEND Radiology Diagnostic Radiology
DX: I73.9 Peripheral vascular disease, unspecified (principal); R09.89 Other specified symptoms and signs involving the circulatory and respiratory systems
CPT/HCPCS: 37230; 80048; 85027; 85610; 93975; 99152; 99153; C1760; C1874; C1886; J0360; J1920; J2250; J2305; J3010; Q9967

== ENCOUNTER → 2025-09-25 | Outpatient (CLI) | payer MEDICARE, MEDICAID ==
[~2025-09-25] MED LIST changes: -ACETAMINOPHEN 325 MG TAB PO PRN; +LISI10TA24 PO; -NS (Normal Saline) 0.9% 1,000 ML IV SCH; -ONDANSETRON 4MG 2ML VIAL IV PRN; -PERCOCET 5MG/325MG TAB PO PRN
== END ==
LOC: M RAD 09:37
PROVIDERS: ATTEND Radiology Diagnostic Radiology
DX: I70.201 Unspecified atherosclerosis of native arteries of extremities, right leg (principal)

== ENCOUNTER → 2025-09-27 | Outpatient (POV) | payer MEDICARE, MEDICAID ==
[~2025-09-27] VITALS: Ht 154.9 cm; Wt 56.4 kg
[2025-09-27 09:25] VITALS: BP 140/100; O2SAT 100
== END ==
LOC: M IRPOV 09:02
PROVIDERS: ATTEND Registered Nurse School
DX: Z48.812 Encounter for surgical aftercare following surgery on the circulatory system (principal); I73.9 Peripheral vascular disease, unspecified; R20.8 Other disturbances of skin sensation; R00.8 Other abnormalities of heart beat; Z79.82 Long term (current) use of aspirin; Z79.01 Long term (current) use of anticoagulants

== ENCOUNTER → 2025-11-21 | Outpatient (CLI) | payer MEDICARE, MEDICAID ==
[~2025-11-21] VITALS: Ht 154.9 cm; Wt 56.8 kg
[~2025-11-21] MED LIST changes: +ACETAMINOPHEN 325 MG TAB PO PRN; +CLOP75TA2 PO; +NS (Normal Saline) 0.9% 1,000 ML IV SCH; +ONDANSETRON 4MG/2ML VIAL IV PRN; +PERCOCET 5MG/325MG TAB PO PRN
[2025-11-21 09:00] VITALS: TEMP 96.8
[2025-11-21 09:03] LABS: PLATELET COUNT, AUTOMATED 265 10^3/uL (150-450)
[2025-11-21 09:27] LABS: INR 0.87
[2025-11-21 09:35] LABS: CALCIUM LEVEL 8.7 MG/DL (8.3-10.6); CARBON DIOXIDE LEVEL 29.0 MMOL/L (20-31); CHLORIDE LEVEL 106.0 MMOL/L (98-107); CREATININE FOR GFR 1.09 MG/DL (0.55-1.30); GLOMERULAR FILTRATION RATE 55.0 (>45); POTASSIUM SERUM 4.1 MMOL/L (3.5-5.1); SODIUM LEVEL 141.0 MMOL/L (136-145)
[2025-11-21 10:27] VITALS: BP 215/106
[2025-11-21] MEDS: MIDAZOLAM INJ 2 MG/2 ML VIAL IV PRN (10:34)
[2025-11-21] MEDS: NS (Normal Saline) 0.9% 1,000 ML IV SCH (10:36)
[2025-11-21] MEDS: HEPARIN 1,000 UNITS/ML 10 ML VIAL (FOR RADIOLOGY & DIALYSIS ONLY) IV PRN (10:49)
[2025-11-21] MEDS: LIDOCAINE 1% MDV 20 ML VIAL SC SCH (12:34)
[2025-11-21] MEDS: ISOVUE-300 61% 100 ML VIAL IV SCH (12:49)
[2025-11-21 14:45] VITALS: BP 162/79; O2SAT 100
== END ==
LOC: M IRPRO 08:28
PROVIDERS: ATTEND Radiology Diagnostic Radiology
DX: R09.89 Other specified symptoms and signs involving the circulatory and respiratory systems (principal); I73.89 Other specified peripheral vascular diseases
CPT/HCPCS: 37225; 37231; 37234; 80048; 85027; 85610; 93975; 99152; 99153; C1714; C1874; C1886; C1887; C1894; C2623; J2250; J3010; Q9967